=== PATIENT | male | born 1950 | race Caucasian/White ===

== ENCOUNTER → 2016-09-28 | Outpatient (CLI) | payer OTHER ==
[~2016-09-28] MED LIST: ASPI-113 PO; ATEN25TA PO; OMEGCAP2 PO
[2016-09-28 13:16] LABS: BASO % 0.3 %; BASO ABS # 0.03 K/uL (0-0.2); COMPLETE YES; EOS % 5.8 %; HEMATOCRIT 47.9 % (42-52); IG% 0.3 %; LYMPH % 25.5 %; LYMPH ABS # 2.36 K/uL (1.2-3.4); MEAN CELL VOLUME 95.8 fL (80-100); MEAN CORPUSCULAR HEMOGLOBIN 33.4 pg (25-34); MEAN CORPUSCULAR HGB CONC 34.9 g/dl (32-36); MONO % 7.6 %; NEUT % 60.5 %; PLATELET COUNT 253 K/uL (130-400); WHITE BLOOD COUNT 9.26 K/uL (4.8-10.8)
[2016-09-28 13:34] LABS: ALT/SGPT 31 U/L (12-78); BLOOD UREA NITROGEN 17 mg/dl (7-18); BUN/CREATININE RATIO 19.8 (10-20); CARBON DIOXIDE 22 mmol/L (21-32); CHLORIDE 107 mmol/L (98-107); CHOLESTEROL 180 mg/dl (0-200); CREATININE 0.88 mg/dl (0.60-1.40); GLUCOSE 142 mg/dl (70-99); POTASSIUM 4.1 mmol/L (3.5-5.1); SODIUM 140 mmol/L (136-145); TRIGLYCERIDES 208 mg/dl (0-150); VERY LOW DENSITY LIPOPROT CALC 42 mg/dl
[2016-09-28 13:36] LABS: ESTIMATED AVERAGE GLUCOSE 108 mg/dl; HA1C FLAG Normal (Normal)
[2016-09-28 13:50] LABS: ALB/GLOB RATIO 0.8 (0.9-2); ALKALINE PHOSPHATASE 96 U/L (45-117); AST/SGOT 18 U/L (15-37); CHOLESTEROL/HDL RATIO 4.1; HDL CHOLESTEROL 44 mg/dl; PROSTATE SPECIFIC ANTIGEN 0.638 ng/ml (0.000-4.000)
--- NOTE | 2016-10-05 09:02 | CODING QUERY MEDICAL NECESSITY ---
CQSUPPORTING DIAGNOSIS NEEDED A supporting diagnosis is required for the test/procedure performed on this patient in order for us to be reimbursed by the patient's insurance. Please provide a supporting diagnosis for the following test/procedure listed below next to the test name along with your signature. *If there is no additional diagnosis for this patient that would support the following test/procedure please document that below next to the test/procedure. Test(s)/Procedure(s) that require a supporting diagnosis: DOS 09/28/16 PROSTATE SPECIFIC TEST Provider Signature: Date: Thank you Elvie Eagle [employer] Once completed, please kindly fax back to [phone] For questions please call [phone]
== END | disposition home or self-care (01) ==
LOC: C.LABSPEC 12:23
PROVIDERS: ATTEND Internal Medicine
DX: R73.9 Hyperglycemia, unspecified (principal); I10 Essential (primary) hypertension; E78.5 Hyperlipidemia, unspecified; R30.0 Dysuria; N52.9 Male erectile dysfunction, unspecified; R35.0 Frequency of micturition

== ENCOUNTER 2017-09-16 11:54 | Inpatient (IN) | payer OTHER ==
[~2017-09-16] VITALS: Ht 175.3 cm; Wt 94.0 kg
[2017-09-16] MEDS ORDERED: SODIUM CHLORIDE 0.9% 1000ML 1,000 ML IV SCH (12:57)
[2017-09-16 13:11] LABS: BASO % 0.3 %; BASO ABS # 0.03 K/uL (0-0.2); EOS % 6.4 %; EOS ABS # 0.64 K/uL (0-0.5); HEMATOCRIT 48.2 % (42-52); HEMOGLOBIN 17.5 g/dL (14.0-18.0); IG# 0.03 K/uL (0.00-0.02); LYMPH % 25.3 %; LYMPH ABS # 2.52 K/uL (1.2-3.4); MEAN CELL VOLUME 94.3 fL (80-100); MEAN CORPUSCULAR HEMOGLOBIN 34.2 pg (25-34); MEAN CORPUSCULAR HGB CONC 36.3 g/dl (32-36); MEAN PLATELET VOLUME 9.8 fL (7.4-10.4); MONO % 5.2 %; MONO ABS # 0.52 K/uL (0.11-0.59); NEUT % 62.5 %; NEUT ABS # 6.23 K/uL (1.4-6.5); PLATELET COUNT 251 K/uL (130-400); RED CELL DISTRIBUTION WIDTH CV 12.9 % (11.5-14.5); RED CELL DISTRIBUTION WIDTH SD 44.6 fL (36.4-46.3); WHITE BLOOD COUNT 9.97 K/uL (4.8-10.8)
[2017-09-16 13:21] LABS: PTT PATIENT 25.6 SECONDS (21.0-31.0)
--- NOTE | 2017-09-16 13:26 | DIAGNOSTIC IMAGING REPORT ---
HEAD WITHOUT CONTRAST (CT) CT DOSE: 614.27 mGy.cm HISTORY: Mental status change Stroke TECHNIQUE: Multiaxial CT images of the head were performed without the use of intravenous contrast. A dose lowering technique was utilized adhering to the principles of ALARA. Comparison: None. Findings: Mild mucosal thickening of the ethmoid sinuses The calvarium and skull base are intact. The ventricles and sulci are within normal limits. There is no mass, hematoma, midline shift, or acute infarct. Age-related chronic small vessel change. No acute intracranial hemorrhage. Impression: No acute intracranial abnormality. Age-related change. The above report was generated using voice recognition software. It may contain grammatical, syntax or spelling errors. Electronically signed by: Drew Chawla M.D. 09/16/2017 1:25 PM Dictated Date/Time: 09/16/2017 1:23 PM
[2017-09-16 13:27] LABS: BLOOD UREA NITROGEN 16 mg/dl (7-18); CALCIUM 8.7 mg/dl (8.5-10.1); CARBON DIOXIDE 26 mmol/L (21-32); CREATININE 1.03 mg/dl (0.60-1.40); GLUCOSE 126 mg/dl (70-99); SODIUM 138 mmol/L (136-145)
--- NOTE | 2017-09-16 13:32 | DIAGNOSTIC IMAGING REPORT ---
CHEST ONE VIEW PORTABLE CLINICAL HISTORY: Stroke COMPARISON STUDY: No previous studies for comparison. FINDINGS: The heart is at the upper limits of normal in size. There is no failure. There is no focal pulmonary consolidation. There are left midlung zone and lower lung zone atelectatic changes. No significant pleural effusions are visualized IMPRESSION: No active disease in the chest. Electronically signed by: Kobe Vargas M.D. 09/16/2017 1:30 PM Dictated Date/Time: 09/16/2017 1:30 PM
[2017-09-16] MEDS ORDERED: METH10TA4 PO (14:26)
[2017-09-16] MEDS ORDERED: ONDANSETRON INJ 2 MG/ML 2 ML VIAL IV PRN (15:00)
[2017-09-16] MEDS ORDERED: ALUMINUM/MAGNESIUM/SIMETH (MAALOX MAX) 30 ML UDC PO PRN (15:00)
[2017-09-16] MEDS ORDERED: MAGNESIUM HYDROXIDE SUSP 30 ML UDC PO PRN (15:00)
[2017-09-16] MEDS ORDERED: ACETAMINOPHEN 325 MG TAB PO PRN (15:00)
[2017-09-16] MEDS ORDERED: PHARMACIST DISCHARGE MED REC CONSULT PRN (15:00)
[2017-09-16] MEDS ORDERED: POLYETHYLENE (MIRALAX) 17 GM PACK PO PRN (15:00)
[2017-09-16] MEDS ORDERED: HydrALAZINE HCL 20 MG/ML VIAL IV. PRN (15:15)
--- NOTE | 2017-09-16 15:17 | History and Physical ---
History & Physical Date & Time of Service: Sep 16, 2017 at 14:59 Chief Complaint: Numbness Left Leg And Arm Primary Care Physician: Jus Liu M.D. History of Present Illness Source: patient, spouse Mr. Wilson is a 67 y/o male with PMHx of HTN and ADHD who presents to the ED c/o L sided numbness/tingling and ambulatory dysfunction starting on 09/15 around 0800. Patient reports that he woke up with these symptoms yesterday. Reporting L arm numbness/tingling that extends the whole length of the arm but does report this is beginning to resolve. He also had associated weakness of the L leg only. He states the leg seems to buckle when he tries to bear weight. He figured these symptoms would resolve and that is why he didn't seek initial care. He feels that the weakness in his leg is improving at this time but not at his baseline ambulatory status. He reports not needing any assistive devices for ambulation at baseline. He denies headache, speech difficulty, swallowing disturbances, vision changes, or facial droop. He denies history of similar issues. Past Medical/Surgical History Medical Problems: (1) Ataxia (2) Hypertension (3) ADHD Family History Stroke Social History Smoking Status: Current Some Day Smoker Alcohol Use: socially Drug Use: none Marital Status: Housing status: lives with significant other Allergies Uncoded Allergies: BEE STINGS (Allergy, Unknown, ., 04/11/15) Home Medications Scheduled Atenolol (Tenormin), 25 MG PO QPM Methylphenidate (Ritalin), 10 MG PO QID Review of Systems Constitutional: No fever, No chills Eyes: No worsening of vision, No diplopia ENT: No nasal symptoms Respiratory: No cough, No shortness of breath Cardiovascular: No chest pain Abdomen: No pain, No nausea, No vomiting, No diarrhea, No constipation Musculoskeletal: No swelling, No calf pain Genitourinary - Male: No dysuria Neurologic: + weakness (LLE - bucking leg when weightbearing), + numbness/ tingling (L arm - full length of arm), + balance problems Hematologic / Lymphatic: No abnormal bleeding/bruising Integumentary: No rash Physical Exam Vital Signs Date Time Temp Pulse Resp B/P (MAP) Pulse Ox O2 Delivery O2 Flow Rate FiO2 09/16/17 14:15 50 18 184/96 96 Room Air 09/16/17 13:00 51 16 178/98 97 Room Air 09/16/17 12:43 53 16 191/102 98 Room Air 09/16/17 12:27 52 09/16/17 12:20 Room Air 09/16/17 12:04 36.5 52 16 191/103 95 Room Air General Appearance: WD/WN, no apparent distress Head: normocephalic, atraumatic Eyes: sclerae normal ENT: hearing grossly normal Neck: supple, no JVD, trachea midline Respiratory/Chest: lungs clear, normal breath sounds, no respiratory distress, no accessory muscle use Cardiovascular: regular rate, rhythm, no gallop, no murmur Abdomen/GI: normal bowel sounds, non tender, soft Extremities/Musculoskelatal: no calf tenderness, no pedal edema Neurologic/Psych: no motor/sensory deficits (equal strength diffusely b/l; symmetrical facial features and movements; Romberg negative; WARNER intact), alert , normal mood/affect, oriented x 3 Skin: normal color, warm/dry Diagnostics Laboratory Results Results Past 24 Hours Test 09/16/17 12:30 Range/Units White Blood Count 9.97 4.8-10.8 K/uL Red Blood Count 5.11 4.7-6.1 M/uL Hemoglobin 17.5 14.0-18.0 g/dL Hematocrit 48.2 42-52 % Mean Corpuscular Volume 94.3 80-100 fL Mean Corpuscular Hemoglobin 34.2 25-34 pg Mean Corpuscular Hemoglobin Concent 36.3 32-36 g/dl Platelet Count 251 130-400 K/uL Mean Platelet Volume 9.8 7.4-10.4 fL Neutrophils (%) (Auto) 62.5 % Lymphocytes (%) (Auto) 25.3 % Monocytes (%) (Auto) 5.2 % Eosinophils (%) (Auto) 6.4 % Basophils (%) (Auto) 0.3 % Neutrophils # (Auto) 6.23 1.4-6.5 K/uL Lymphocytes # (Auto) 2.52 1.2-3.4 K/uL Monocytes # (Auto) 0.52 0.11-0.59 K/uL Eosinophils # (Auto) 0.64 0-0.5 K/uL Basophils # (Auto) 0.03 0-0.2 K/uL RDW Standard Deviation 44.6 36.4-46.3 fL RDW Coefficient of Variation 12.9 11.5-14.5 % Immature Granulocyte % (Auto) 0.3 % Immature Granulocyte # (Auto) 0.03 0.00-0.02 K/uL Prothrombin Time 10.5 9.0-12.0 SECONDS Prothromb Time International Ratio 1.0 0.9-1.1 Activated Partial Thromboplast Time 25.6 21.0-31.0 SECONDS Partial Thromboplastin Ratio 1.0 Sodium Level 138 136-145 mmol/L Potassium Level 4.0 3.5-5.1 mmol/L Chloride Level 105 98-107 mmol/L Carbon Dioxide Level 26 21-32 mmol/L Anion Gap 7.0 3-11 mmol/L Blood Urea Nitrogen 16 7-18 mg/dl Creatinine 1.03 0.60-1.40 mg/dl Est Creatinine Clear Calc Drug Dose 78.8 ml/min Estimated GFR () 86.7 Estimated GFR (Non- 74.8 BUN/Creatinine Ratio 15.1 10-20 Random Glucose 126 70-99 mg/dl Calcium Level 8.7 8.5-10.1 mg/dl Magnesium Level 2.4 1.8-2.4 mg/dl Total Creatine Kinase 43 39-308 U/L Troponin I < 0.015 0-0.045 ng/ml Diagnostic Radiology HEAD WITHOUT CONTRAST (CT) Findings: Mild mucosal thickening of the ethmoid sinuses The calvarium and skull base are intact. The ventricles and sulci are within normal limits. There is no mass, hematoma, midline shift, or acute infarct. Age-related chronic small vessel change. No acute intracranial hemorrhage. Impression: No acute intracranial abnormality. Age-related change. CHEST ONE VIEW PORTABLE FINDINGS: The heart is at the upper limits of normal in size. There is no failure. There is no focal pulmonary consolidation. There are left midlung zone and lower lung zone atelectatic changes. No significant pleural effusions are visualized IMPRESSION: No active disease in the chest. EKG Sinus bradycardia Inferior infarct , age undetermined Abnormal ECG No previous ECGs available Impression Assessment and Plan Mr. Wilson is a 67 y/o male with PMHx of HTN and ADHD who presents to the ED c/o L sided numbness/tingling and ambulatory dysfunction starting on 09/15 around 0800. Ataxis and L Arm Numbness - Suspect Stroke: - Head CT unremarkable and symptoms slowly resolving however has been > 24 hours without complete resolution that is alarming for CVA - Patient has H/O HTN but reporting baseline systolics of 140 and currently 180- 190s which may also be an indicator - Obtain MRI to R/O CVA - Start ASA 81 mg - reports intermittent use at home - Start Atorvastatin 40 mg daily and assess lipid panel in AM; Check A1c - Allow permissive HTN with Hydralazine PRN for systolics > 220 or diastolics > 120 - Monitor rhythm on telemetry and obtain echocardiogram ADHD: - Ritalin 10 mg BID - Could possibly be factoring into his BP? HTN: - Hold Atenolol and allowe permissive HTN DVT Prophylaxis: Lovenox Code Status: FULL RESUSCITATION Disposition: - PT/OT evaluations - Await further testing; possible D/C tomorrow Resident Physician Supervision Note: I was present with Renetta BAÑUELOS during the history and exam. I discussed the case with the PA and agree with the findings and plan as documented in the note. Any exceptions or clarifications are listed here: 67 y/o M Hx HTN, ADHD - presenting with LUE numbness and ataxia which has persisted since the prior day. An initial CT was negative, however, an MRI revealed an acute lacunar infarct in the posterior limb of the right internal capsule. OE AAO x 3 S1,2 R CTAB NT, ND No CCE Deficits mostly limited to an impaired gait P: Pt does not take ASA regularly so that he is placed on ASA and a Statin. He may want to avoid Ritalin going forward as this may cause BP spikes. We have consulted neurology. He is assigned to telemetry overnight with a CVA protocol. Documented By: Jay Marsh Resuscitation Status VTE Prophylaxis Will order VTE Prophylaxis: Yes
[2017-09-16] MEDS ORDERED: IV FLUIDS COMPLETED PRN (15:30)
--- NOTE | 2017-09-16 15:55 | DIAGNOSTIC IMAGING REPORT ---
ORBITS FOR MRI CLINICAL HISTORY: 67 years-old Male presenting with HX OF METAL IN EYES. TECHNIQUE: 3 views of the orbits were obtained. COMPARISON: None. FINDINGS: No radiopaque intraorbital foreign body. Bony orbits grossly intact. Paranasal sinuses grossly clear. Visualized portion of the calvarium intact. IMPRESSION: No intraorbital metallic foreign body to preclude MRI exam. Electronically signed by: Jerzy Casillas M.D. 09/16/2017 3:54 PM Dictated Date/Time: 09/16/2017 3:54 PM
--- NOTE | 2017-09-16 17:05 | DIAGNOSTIC IMAGING REPORT ---
BRAIN COMBO CLINICAL HISTORY: 67 years-old Male presenting with Stroke, numbness in the left arm and leg that began yesterday. TECHNIQUE: Multisequence, multiplanar MR imaging of the brain was performed before and after the administration of intravenous contrast. IV contrast: 9 mL of Gadavist. COMPARISON: Noncontrast CT head performed earlier the same day. FINDINGS: Proportional ventricular and sulcal prominence, likely age-related parenchymal volume loss. Periventricular and subcortical white matter T2/FLAIR hyperintensity, nonspecific but likely indicative of chronic small vessel ischemic change. No mass effect or midline shift. Punctate restricted diffusion in the posterior limb of the right internal capsule or the posterior lateral most right thalamus. No hemorrhage. No extra-axial fluid collection. T2 skull base flow voids preserved. No abnormal parenchymal enhancement. Bone marrow signal intensity within the calvarium within normal limits. Mucosal thickening of ethmoid air cells. IMPRESSION: 1. Acute lacunar infarct in the posterior limb of the right internal capsule or the posterior lateral most right thalamus. 2. Chronic small vessel ischemic change. The report will be called/faxed according to standard departmental protocol. Electronically signed by: Jerzy Casillas M.D. 09/16/2017 5:03 PM Dictated Date/Time: 09/16/2017 4:57 PM
[2017-09-16 17:18] VITALS: BP 186/82; PULSE 53; TEMP 36.4; O2SAT 94
[2017-09-16] MEDS ORDERED: ENOXAPARIN 30 MG/0.3 ML SYR SC SCH (18:00)
[2017-09-16 18:45] VITALS: BP 186/82; PULSE 53; TEMP 36.4; O2SAT 98; Ht 175.3 cm; Wt 94.0 kg
--- NOTE | 2017-09-16 19:13 | EMERGENCY ROOM VISIT NOTE ---
History Report prepared by Rachell: Alvina Laguerre Under the Supervision of: Dr. Jonnie Ramírez M.D. First contact with patient: 12:46 Chief Complaint: NEURO SYMPTOMS Stated Complaint: NUMBNESS LEFT LEG AND ARM Nursing Triage Summary: pt here with left sided tingling and numbess and trouble ambulating and using left arm that began yesterday upon waking up. pt denies any n/v, or headache. denies any trouble swallowing, no trouble speaking or visual disturbances. History of Present Illness The patient is a 67 year old male who presents to the Emergency Room with complaints of sudden neurological symptoms beginning yesterday morning around 0800. The patient states that his left leg was weak and that he had numbness in his left arm. He reports that he was unable to stand on his left leg due to the weakness. He felt the leg was very shaky and uncoordinated. The patient denies having any right-sided symptoms. He states that he did not come in yesterday because he thought that his symptoms would pass. He denies having facial numbness, visual changes, and trouble speaking. The patient also denies having chest pain, shortness of breath, abdominal pain, and headaches. He denies having a history of strokes, but reports that he takes Atenolol for hypertension. Source of History: patient Onset: 0800 yesterday morning Position: other (left-side of body) Quality: other (neurological symptoms ) Timing: other (sudden ) Associated Symptoms: No headache, No chest pain, No SOB, No abdominal pain Note: denies: facial numbness, visual changes, and trouble speaking Review of Systems See HPI for pertinent positives & negatives. A total of 10 systems reviewed and were otherwise negative. Past Medical & Surgical Medical Problems: (1) Acute lacunar infarction (2) Ataxia (3) Hypertension Family History Stroke Social History Smoking Status: Current Some Day Smoker Marital Status: Current/Historical Medications Scheduled Atenolol (Tenormin), 25 MG PO QPM Methylphenidate (Ritalin), 10 MG PO QID Allergies Uncoded Allergies: BEE STINGS (Allergy, Unknown, ., 04/11/15) Physical Exam Vital Signs Date Time Temp Pulse Resp B/P (MAP) Pulse Ox O2 Delivery O2 Flow Rate FiO2 09/16/17 14:15 50 18 184/96 96 Room Air 09/16/17 13:00 51 16 178/98 97 Room Air 09/16/17 12:43 53 16 191/102 98 Room Air 09/16/17 12:27 52 09/16/17 12:20 Room Air 09/16/17 12:04 36.5 52 16 191/103 95 Room Air Physical Exam Constitutional: Vital signs reviewed. Eyes: Pupils are equal round reactive to light. Conjunctiva are noninjected. ENT: Pharynx is clear without erythema or exudate. Mucous membranes are moist. Neck supple without meningeal signs. Respiratory: Clear to auscultation bilaterally. Breath sounds are equal bilaterally. Cardiovascular: Regular rate and rhythm. No rubs or gallops. GI: Soft, nondistended and nontender. Bowel sounds are present. Musculoskeletal: No peripheral edema. No lower extremity tenderness. Integumentary: No cyanosis. Neurological: The patient is awake and alert. Cranial nerves II-XII are intact. Motor is 5 out of 5 all extremities. Diminished sensation in the left arm and leg. Normal speech. No pronator drift. Left lower extremity ataxia. Psychiatric: Normal affect. Medical Decision & Procedures ER Provider Diagnostic Interpretation: Radiology results as stated below per my review and the radiologist's interpretation: HEAD WITHOUT CONTRAST (CT) CT DOSE: 614.27 mGy.cm HISTORY: Mental status change Stroke TECHNIQUE: Multiaxial CT images of the head were performed without the use of intravenous contrast. A dose lowering technique was utilized adhering to the principles of ALARA. Comparison: None. Findings: Mild mucosal thickening of the ethmoid sinuses The calvarium and skull base are intact. The ventricles and sulci are within normal limits. There is no mass, hematoma, midline shift, or acute infarct. Age-related chronic small vessel change. No acute intracranial hemorrhage. Impression: No acute intracranial abnormality. Age-related change. The above report was generated using voice recognition software. It may contain grammatical, syntax or spelling errors. Electronically signed by: Drew Chawla M.D. 09/16/2017 1:25 PM Dictated Date/Time: 09/16/2017 1:23 PM CHEST ONE VIEW PORTABLE CLINICAL HISTORY: Stroke COMPARISON STUDY: No previous studies for comparison. FINDINGS: The heart is at the upper limits of normal in size. There is no failure. There is no focal pulmonary consolidation. There are left midlung zone and lower lung zone atelectatic changes. No significant pleural effusions are visualized IMPRESSION: No active disease in the chest. Electronically signed by: Kobe Vargas M.D. 09/16/2017 1:30 PM Dictated Date/Time: 09/16/2017 1:30 PM Laboratory Results 09/16/17 12:30 Red Blood Count 5.11, Mean Corpuscular Volume 94.3, Mean Corpuscular Hemoglobin 34.2, Mean Corpuscular Hemoglobin Concent 36.3, Mean Platelet Volume 9.8, Neutrophils (%) (Auto) 62.5, Lymphocytes (%) (Auto) 25.3, Monocytes (%) (Auto) 5.2, Eosinophils (%) (Auto) 6.4, Basophils (%) (Auto) 0.3, Neutrophils # (Auto) 6.23, Lymphocytes # (Auto) 2.52, Monocytes # (Auto) 0.52, Eosinophils # (Auto) 0.64, Basophils # (Auto) 0.03 09/16/17 12:30 Test 09/16/17 12:30 White Blood Count 9.97 K/uL (4.8-10.8) Red Blood Count 5.11 M/uL (4.7-6.1) Hemoglobin 17.5 g/dL (14.0-18.0) Hematocrit 48.2 % (42-52) Mean Corpuscular Volume 94.3 fL (80-100) Mean Corpuscular Hemoglobin 34.2 pg (25-34) Mean Corpuscular Hemoglobin Concent 36.3 g/dl (32-36) Platelet Count 251 K/uL (130-400) Mean Platelet Volume 9.8 fL (7.4-10.4) Neutrophils (%) (Auto) 62.5 % Lymphocytes (%) (Auto) 25.3 % Monocytes (%) (Auto) 5.2 % Eosinophils (%) (Auto) 6.4 % Basophils (%) (Auto) 0.3 % Neutrophils # (Auto) 6.23 K/uL (1.4-6.5) Lymphocytes # (Auto) 2.52 K/uL (1.2-3.4) Monocytes # (Auto) 0.52 K/uL (0.11-0.59) Eosinophils # (Auto) 0.64 K/uL (0-0.5) Basophils # (Auto) 0.03 K/uL (0-0.2) RDW Standard Deviation 44.6 fL (36.4-46.3) RDW Coefficient of Variation 12.9 % (11.5-14.5) Immature Granulocyte % (Auto) 0.3 % Immature Granulocyte # (Auto) 0.03 K/uL (0.00-0.02) Prothrombin Time 10.5 SECONDS (9.0-12.0) Prothromb Time International Ratio 1.0 (0.9-1.1) Activated Partial Thromboplast Time 25.6 SECONDS (21.0-31.0) Partial Thromboplastin Ratio 1.0 Anion Gap 7.0 mmol/L (3-11) Est Creatinine Clear Calc Drug Dose 78.8 ml/min Estimated GFR () 86.7 Estimated GFR (Non- 74.8 BUN/Creatinine Ratio 15.1 (10-20) Calcium Level 8.7 mg/dl (8.5-10.1) Magnesium Level 2.4 mg/dl (1.8-2.4) Total Creatine Kinase 43 U/L (39-308) Troponin I < 0.015 ng/ml (0-0.045) Laboratory results as reviewed by me. Medications Administered Medications (Trade) Dose Ordered Sig/Bertha Route Start Time Stop Time Status Last Admin Dose Admin Sodium Chloride 1,000 ml @ 50 mls/hr Q20H IV 09/16/17 12:57 09/16/17 16:49 DC 09/16/17 13:17 50 MLS/HR ECG Per My Interpretation Indication: other (neurological symptoms ) Rate (beats per minute): 51 Rhythm: sinus bradycardia Findings: other (no ST elevation, no PVCs) ED Course 1247: The patient was evaluated in room B4. A complete history and physical exam was performed. 1257: Ordered Sodium Chloride 1,000 ml @ 50 mls/hr IV. 1428: I checked on the patient. He says that his numbness has improved but that his ataxia is still present. 1430: I spoke with Dr. Marsh of [facility]. We discussed the patient and his results. The patient will be further evaluated by Dr. Marsh. Medical Decision This is a 67-year-old male who presents with limb ataxia and numbness. Differential diagnosis includes CVA, intracranial mass, intracranial hemorrhage , metabolic derangement, demyelinating disease. I did perform a limited focused review of portions of the patient's old chart on the electronic medical record. The patient has had no recent pertinent visits to this hospital. I did evaluate the patient as noted above. Patient does have diminished sensation in the left arm and leg. He also has limb ataxia with the left limb. IV access was established. The patient was placed on a continuous cardiac/vascular sonographer. I did order and personally review the patient's 12-lead EKG and chest x-ray as described above. I did order and review the patient's blood work as noted in the electronic medical record. I did order a CT of the head. I did review the images myself as well as the radiology report as described above. There is no evidence of acute CVA. I was, however, concerned about thalamic CVA and recommended he be hospitalized for further evaluation and MRI. I did discuss case with the hospitalist and foster care case manager. I did discuss the test results with the patient and his . Medication Reconcilliation Current Medication List: was personally reviewed by me Blood Pressure Screening Patient's blood pressure: Elevated blood pressure Blood pressure disposition: Referred to PCP Consults Time Called: 1430 Consulting Physician: Dr. Marsh- [facility] Returned Call: [address] Marsh of [facility]. We discussed the patient and his results. The patient will be further evaluated by Dr. Marsh. Impression Primary Impression: Left sided numbness Additional Impression: Limb ataxia in one extremity Scribe Attestation The scribe's documentation has been prepared under my direct and personally reviewed by me in its entirety. I confirm that the note above accurately reflects all work, treatment, procedures, and medical decision making performed by me. Departure Information Dispostion Being Evaluated By Hospitalist Referrals Jus Liu M.D. (PCP) Patient Instructions My [facility] Problem Qualifiers
[2017-09-16 20:00] VITALS: O2SAT 98
[2017-09-16 20:39] VITALS: BP 178/105; TEMP 36.6; O2SAT 96
[2017-09-17] VITALS (7 sets, daily range): BP systolic 149–180; BP diastolic 88–102; PULSE 54–58; TEMP 36.5–37.1; O2SAT 93–95
[2017-09-17 06:03] LABS: BASO % 0.1 %; BASO ABS # 0.01 K/uL (0-0.2); EOS % 5.2 %; EOS ABS # 0.51 K/uL (0-0.5); HEMATOCRIT 45.5 % (42-52); HEMOGLOBIN 16.1 g/dL (14.0-18.0); IG# 0.04 K/uL (0.00-0.02); LYMPH % 32.4 %; LYMPH ABS # 3.16 K/uL (1.2-3.4); MEAN CELL VOLUME 93.8 fL (80-100); MEAN CORPUSCULAR HEMOGLOBIN 33.2 pg (25-34); MEAN CORPUSCULAR HGB CONC 35.4 g/dl (32-36); MEAN PLATELET VOLUME 9.1 fL (7.4-10.4); MONO ABS # 0.78 K/uL (0.11-0.59); NEUT % 53.9 %; NEUT ABS # 5.26 K/uL (1.4-6.5); PLATELET COUNT 245 K/uL (130-400); RED CELL DISTRIBUTION WIDTH CV 12.8 % (11.5-14.5); RED CELL DISTRIBUTION WIDTH SD 43.8 fL (36.4-46.3); WHITE BLOOD COUNT 9.76 K/uL (4.8-10.8)
[2017-09-17 06:30] LABS: CALCIUM 8.2 mg/dl (8.5-10.1); CREATININE 1.11 mg/dl (0.60-1.40); POTASSIUM 3.6 mmol/L (3.5-5.1)
[2017-09-17 06:41] LABS: HEMOGLOBIN A1C 5.3 % (4.5-5.6)
[2017-09-17] MEDS ORDERED: METHYLPHENIDATE HCL 10 MG TAB PO SCH (07:00)
--- NOTE | 2017-09-17 08:44 | Progress Note ---
Subjective Date of Service: Sep 17, 2017. Problem List Medical Problems: (1) Left sided numbness Status: Acute (2) Limb ataxia in one extremity Status: Acute Objective Vital Signs Date Time Temp Pulse Resp B/P (MAP) Pulse Ox O2 Delivery O2 Flow Rate FiO2 09/17/17 07:38 36.5 57 16 149/88 (108) 94 Room Air 09/17/17 04:00 94 Room Air 09/17/17 03:41 37.1 54 16 172/96 (121) 94 09/17/17 00:02 36.9 58 18 180/102 (128) 93 174/102 (126) 09/17/17 00:01 93 Room Air 09/16/17 20:39 36.6 53 178/105 (129) 96 Room Air 09/16/17 20:00 98 Room Air 09/16/17 18:45 36.4 53 18 186/82 98 Room Air 09/16/17 17:18 36.4 53 18 186/82 (116) 94 Room Air 09/16/17 16:19 36.5 52 18 173/102 96 09/16/17 15:13 52 18 173/102 96 Room Air 09/16/17 14:15 50 18 184/96 96 Room Air 09/16/17 13:00 51 16 178/98 97 Room Air 09/16/17 12:43 53 16 191/102 98 Room Air 09/16/17 12:27 52 09/16/17 12:20 Room Air 09/16/17 12:04 36.5 52 16 191/103 95 Room Air Laboratory Results Last 24 Hours Test 09/16/17 12:30 09/17/17 05:44 White Blood Count 9.97 K/uL 9.76 K/uL Red Blood Count 5.11 M/uL 4.85 M/uL Hemoglobin 17.5 g/dL 16.1 g/dL Hematocrit 48.2 % 45.5 % Mean Corpuscular Volume 94.3 fL 93.8 fL Mean Corpuscular Hemoglobin 34.2 pg 33.2 pg Mean Corpuscular Hemoglobin Concent 36.3 g/dl 35.4 g/dl Platelet Count 251 K/uL 245 K/uL Mean Platelet Volume 9.8 fL 9.1 fL Neutrophils (%) (Auto) 62.5 % 53.9 % Lymphocytes (%) (Auto) 25.3 % 32.4 % Monocytes (%) (Auto) 5.2 % 8.0 % Eosinophils (%) (Auto) 6.4 % 5.2 % Basophils (%) (Auto) 0.3 % 0.1 % Neutrophils # (Auto) 6.23 K/uL 5.26 K/uL Lymphocytes # (Auto) 2.52 K/uL 3.16 K/uL Monocytes # (Auto) 0.52 K/uL 0.78 K/uL Eosinophils # (Auto) 0.64 K/uL 0.51 K/uL Basophils # (Auto) 0.03 K/uL 0.01 K/uL RDW Standard Deviation 44.6 fL 43.8 fL RDW Coefficient of Variation 12.9 % 12.8 % Immature Granulocyte % (Auto) 0.3 % 0.4 % Immature Granulocyte # (Auto) 0.03 K/uL 0.04 K/uL Prothrombin Time 10.5 SECONDS Prothromb Time International Ratio 1.0 Activated Partial Thromboplast Time 25.6 SECONDS Partial Thromboplastin Ratio 1.0 Sodium Level 138 mmol/L 138 mmol/L Potassium Level 4.0 mmol/L 3.6 mmol/L Chloride Level 105 mmol/L 104 mmol/L Carbon Dioxide Level 26 mmol/L 28 mmol/L Anion Gap 7.0 mmol/L 6.0 mmol/L Blood Urea Nitrogen 16 mg/dl 17 mg/dl Creatinine 1.03 mg/dl 1.11 mg/dl Est Creatinine Clear Calc Drug Dose 78.8 ml/min 73.1 ml/min Estimated GFR () 86.7 79.2 Estimated GFR (Non- 74.8 68.3 BUN/Creatinine Ratio 15.1 15.7 Random Glucose 126 mg/dl 123 mg/dl Calcium Level 8.7 mg/dl 8.2 mg/dl Magnesium Level 2.4 mg/dl Total Creatine Kinase 43 U/L Troponin I < 0.015 ng/ml Estimated Average Glucose 105 mg/dl Hemoglobin A1c 5.3 % Triglycerides Level 289 mg/dl Cholesterol Level 171 mg/dl HDL Cholesterol 36 mg/dl LDL Cholesterol, Calculated 77 mg/dl VLDL Cholesterol, Calculated 58 mg/dl Cholesterol/HDL Ratio 4.8 Assessment and Plan Mr. Wilson is a 67 y/o male with PMHx of HTN and ADHD who presents to the ED c/o L sided numbness/tingling and ambulatory dysfunction starting on 09/15 around 0800. Ataxis and L Arm Numbness - Suspect Stroke: - Head CT unremarkable and symptoms slowly resolving however has been > 24 hours without complete resolution that is alarming for CVA - Patient has H/O HTN but reporting baseline systolics of 140 and currently 180- 190s which may also be an indicator - Obtain MRI to R/O CVA - Start ASA 81 mg - reports intermittent use at home - Start Atorvastatin 40 mg daily and assess lipid panel in AM; Check A1c - Allow permissive HTN with Hydralazine PRN for systolics > 220 or diastolics > 120 - Monitor rhythm on telemetry and obtain echocardiogram ADHD: - Ritalin 10 mg BID - Could possibly be factoring into his BP? HTN: - Hold Atenolol and allowe permissive HTN DVT Prophylaxis: Lovenox Code Status: FULL RESUSCITATION Disposition: - PT/OT evaluations - Await further testing; possible D/C tomorrow
[2017-09-17] MEDS ORDERED: ATORVASTATIN 40 MG TAB PO SCH (09:00)
[2017-09-17] MEDS ORDERED: ASPIRIN 81 MG ECTAB PO SCH (09:00)
--- NOTE | 2017-09-17 09:44 | Neurology Consultation ---
Neurology Consultation Date of Consultation: Sep 17, 2017. Attending Physician: Jay Marsh M.D. Primary Care Physician: Jus Liu M.D. Reason for Consultation: Stroke History of Present Illness Source: patient, hospital records The patient is a 67-year-old male with a chief complaint left-sided weakness. His symptoms began upon awakening in the morning the day prior to his evaluation in the emergency department. He complained that his left leg felt considerably weak and he had difficulty bearing weight and walking. He complained of associated numbness of the leg and left hand as well. This morning, he reports that his symptoms are considerably improved although he continues to be aware of subtle difficulty with coordination of the left arm and leg. He denies headache, vision change, or change in speech. Patient's past medical history is notable for hypertension for which she is prescribed atenolol and attention deficit disorder for which she is prescribed methylphenidate. He does not take aspirin or other blood thinners and does smoke approximately 4-5 cigarettes per day. I reviewed the images as well as the radiologist's interpretation of the CT of the head completed in the emergency department. The study reveals age-related small vessel ischemic disease and is otherwise unremarkable. Electrocardiogram reveals sinus bradycardia with a heart rate of 51 beats per minute. A follow-up brain MRI has been completed as well. I reviewed the images as well as a radiologist's interpretation of this test. There is evidence of an acute lacunar infarct within the posterior limb of the right internal capsule adjacent to the lateral thalamus. The patient has been started on daily aspirin and statin therapy. A transthoracic echocardiogram has been ordered. Past Medical/Surgical History Medical Problems: (1) Left sided numbness Status: Acute (2) Limb ataxia in one extremity Status: Acute Family History Family history notable for stroke Social History Alcohol Use: socially Drug Use: none Marital Status: Allergies Uncoded Allergies: BEE STINGS (Allergy, Unknown, ., 04/11/15) Current Inpatient Medications Current Inpatient Medications Medications (Trade) Dose Ordered Sig/Bertha Route Start Time Stop Time Status Last Admin Dose Admin Methylphenidate HCl (Ritalin Tab) 10 mg [id number] PO 09/17/17 07:00 10/01/17 06:59 Future Hold 09/17/17 08:15 10 MG Enoxaparin Sodium (Lovenox Inj) 30 mg Q24H SC 09/16/17 18:00 10/16/17 17:59 09/16/17 19:39 30 MG Acetaminophen (Tylenol Tab) 650 mg Q4H PRN PO 09/16/17 15:00 10/16/17 14:59 Al Hydrox/Mg Hydrox/Simethicone (Maalox Max Susp) 15 ml Q4H PRN PO 09/16/17 15:00 10/16/17 14:59 Magnesium Hydroxide (Milk Of Magnesia Susp) 30 ml Q12H PRN PO 09/16/17 15:00 10/16/17 14:59 Ondansetron HCl (Zofran Inj) 4 mg Q6H PRN IV 09/16/17 15:00 10/16/17 14:59 Polyethylene (Miralax Powder Packet) 17 gm DAILY PRN PO 09/16/17 15:00 10/16/17 14:59 Atorvastatin Calcium (Lipitor Tab) 40 mg QAM PO 09/17/17 09:00 10/17/17 08:59 09/17/17 08:16 40 MG Aspirin (Ecotrin Tab) 81 mg QAM PO 09/17/17 09:00 10/17/17 08:59 09/17/17 08:16 81 MG Miscellaneous Information (Pharmacist Discharge Med Rec Consult) 1 ea UD PRN N/A 09/16/17 15:00 10/16/17 14:59 Hydralazine HCl (HydrALAZINE INJ) 10 mg Q6 PRN IV. 09/16/17 15:15 10/16/17 15:14 Miscellaneous (Iv Fluids Completed) 1 ea PRN PRN N/A 09/16/17 15:30 09/16/18 15:29 Review of Systems Constitutional: No fever chills Eyes: No vision loss or diplopia ENT: No hearing loss or vertigo Cardiovascular: No chest pain or palpitations Respiratory: No coughing or shortness of breath Neurological: As per history of present illness Musculoskeletal: No myalgia or arthralgia Skin: No rash Hematologic: No abnormal bruising or bleeding A full 10 point review of systems was obtained from this patient with pertinent positives and negatives described in the history of present illness and otherwise listed above. All remaining systems were reviewed and are negative. Physical Exam Vital Signs (Past 24 Hrs): Date Time Temp Pulse Resp B/P (MAP) Pulse Ox O2 Delivery O2 Flow Rate FiO2 09/17/17 07:38 36.5 57 16 149/88 (108) 94 Room Air 09/17/17 04:00 94 Room Air 09/17/17 03:41 37.1 54 16 172/96 (121) 94 09/17/17 00:02 36.9 58 18 180/102 (128) 93 174/102 (126) 09/17/17 00:01 93 Room Air 09/16/17 20:39 36.6 53 178/105 (129) 96 Room Air 09/16/17 20:00 98 Room Air 09/16/17 18:45 36.4 53 18 186/82 98 Room Air 09/16/17 17:18 36.4 53 18 186/82 (116) 94 Room Air 09/16/17 16:19 36.5 52 18 173/102 96 09/16/17 15:13 52 18 173/102 96 Room Air 09/16/17 14:15 50 18 184/96 96 Room Air 09/16/17 13:00 51 16 178/98 97 Room Air 09/16/17 12:43 53 16 191/102 98 Room Air 09/16/17 12:27 52 09/16/17 12:20 Room Air 09/16/17 12:04 36.5 52 16 191/103 95 Room Air The patient is a well-developed elderly male. He is pleasant and cooperative. The patient is alert and fully oriented. Recent and remote memory intact. Attention and concentration normal. Patient exhibits a normal spontaneous speech pattern as well as an age-appropriate fund of knowledge a normal vocabulary. Visual balderas full to confrontation. Visual acuity normal. Pupils equal round react to light and accommodation. Eye movements normal. There is no nystagmus. Facial sensation intact bilaterally. There is no facial weakness or facial droop. Hearing intact bilaterally. Palate elevates to midline. Shoulder shrug strength intact bilaterally. Tongue protrudes to midline. Sensation intact to light touch, temperature, vibration, and proprioception for all 4 limbs. Deep tendon reflexes are slightly increased for the left arm and leg compared to the right. Left plantar response upgoing, right plantar response downgoing. There is slight dysmetria with finger to nose and heel to cheng on the left. No dysmetria with these maneuvers on the right. Ophthalmoscopic examination reveals normal-appearing optic nerves and posterior segments. No papilledema or hemorrhages. Carotid pulses normal bilaterally, no bruits to auscultation. Gait and station not tested due to safety concerns. Muscle strength and tone normal for all 4 limbs. There is no atrophy. He does have a slight left upper extremity pronator drift. No abnormal movements observed. Laboratory Results Past 24 Hours: 09/17/17 05:44 Red Blood Count 4.85, Mean Corpuscular Volume 93.8, Mean Corpuscular Hemoglobin 33.2, Mean Corpuscular Hemoglobin Concent 35.4, Mean Platelet Volume 9.1, Neutrophils (%) (Auto) 53.9, Lymphocytes (%) (Auto) 32.4, Monocytes (%) (Auto) 8.0, Eosinophils (%) (Auto) 5.2, Basophils (%) (Auto) 0.1, Neutrophils # (Auto) 5.26, Lymphocytes # (Auto) 3.16, Monocytes # (Auto) 0.78, Eosinophils # (Auto) 0.51, Basophils # (Auto) 0.01 09/17/17 05:44 Test 09/16/17 12:30 09/17/17 05:44 Prothrombin Time 10.5 SECONDS (9.0-12.0) Prothromb Time International Ratio 1.0 (0.9-1.1) Activated Partial Thromboplast Time 25.6 SECONDS (21.0-31.0) Partial Thromboplastin Ratio 1.0 Magnesium Level 2.4 mg/dl (1.8-2.4) Total Creatine Kinase 43 U/L (39-308) Troponin I < 0.015 ng/ml (0-0.045) White Blood Count 9.76 K/uL (4.8-10.8) Red Blood Count 4.85 M/uL (4.7-6.1) Hemoglobin 16.1 g/dL (14.0-18.0) Hematocrit 45.5 % (42-52) Mean Corpuscular Volume 93.8 fL (80-100) Mean Corpuscular Hemoglobin 33.2 pg (25-34) Mean Corpuscular Hemoglobin Concent 35.4 g/dl (32-36) Platelet Count 245 K/uL (130-400) Mean Platelet Volume 9.1 fL (7.4-10.4) Neutrophils (%) (Auto) 53.9 % Lymphocytes (%) (Auto) 32.4 % Monocytes (%) (Auto) 8.0 % Eosinophils (%) (Auto) 5.2 % Basophils (%) (Auto) 0.1 % Neutrophils # (Auto) 5.26 K/uL (1.4-6.5) Lymphocytes # (Auto) 3.16 K/uL (1.2-3.4) Monocytes # (Auto) 0.78 K/uL (0.11-0.59) Eosinophils # (Auto) 0.51 K/uL (0-0.5) Basophils # (Auto) 0.01 K/uL (0-0.2) RDW Standard Deviation 43.8 fL (36.4-46.3) RDW Coefficient of Variation 12.8 % (11.5-14.5) Immature Granulocyte % (Auto) 0.4 % Immature Granulocyte # (Auto) 0.04 K/uL (0.00-0.02) Anion Gap 6.0 mmol/L (3-11) Est Creatinine Clear Calc Drug Dose 73.1 ml/min Estimated GFR () 79.2 Estimated GFR (Non- 68.3 BUN/Creatinine Ratio 15.7 (10-20) Estimated Average Glucose 105 mg/dl Hemoglobin A1c 5.3 % (4.5-5.6) Calcium Level 8.2 mg/dl (8.5-10.1) Triglycerides Level 289 mg/dl (0-150) Cholesterol Level 171 mg/dl (0-200) HDL Cholesterol 36 mg/dl LDL Cholesterol, Calculated 77 mg/dl VLDL Cholesterol, Calculated 58 mg/dl Cholesterol/HDL Ratio 4.8 Impression Acute ischemic infarct to the posterior limb of the right internal capsule adjacent to the left thalamus. Risk factors for this patient include age, cigarette smoking, and probably hypertriglyceridemia. Clinically, this patient has very mild weakness and dysmetria of the left upper and lower limbs. Plan I agree with daily aspirin This patient will need a carotid ultrasound. If there is evidence of a significant stenotic lesion on this test he should have a follow-up MRA or CTA of the neck. PT/OT Please contact me if I may be of further assistance
[2017-09-17] MEDS ORDERED: LPT40 PO (10:26)
[2017-09-17] MEDS ORDERED: ASPI-320 PO (10:26)
[2017-09-17] MEDS ORDERED: LPT/40 PO (10:26)
--- NOTE | 2017-09-17 10:36 | Discharge Instructions ---
Discharge Instructions Date of Service Sep 17, 2017. Admission Reason for Admission: Ataxia Discharge Discharge Diagnosis / Problem: right internal capsule, posterior limb, stroke Discharge Goals Goal(s): Diagnostic testing, Therapeutic intervention Activity Recommendations Activity Limitations: as noted below Lifting Limitations: gradually increase as tolerated Please consider talking to Dr Greer about your Ritalin and to continue to monitor your blood pressure . Instructions / Follow-Up Instructions / Follow-Up Risk Factors for Stroke: You can reduce your chances of stroke by working with your medical provider to adopt a healthy lifestyle. Some specific ways to lower your chance of stroke are: * If you are a smoker, now is the time to stop smoking cigarettes * If you are diabetic, improve the control of your blood sugars * Avoid excessive amounts of alcohol * Control high blood pressure * Lose weight if you are overweight * Be sure to lead an active lifestyle * Eat a healthy diet low in salt, cholesterol and fat You should know about other risk factors for stroke that you are unable to control. These include: * Age 55 years or older * Male gender * Certain racial groups: , or / * Family History of Stroke, Mini stroke or Heart Attack * Sickle Cell Disease Follow Up: It is important for you to keep your follow up appointments with your medical provider. Current Hospital Diet Patient's current hospital diet: Regular Diet Discharge Diet Recommended Diet: Low Sodium Diet (2gm Na) Pending Studies Studies pending at discharge: no Laboratory Results Hemoglobin A1c Test 09/17/17 05:44 Range/Units Estimated Average Glucose 105 mg/dl Hemoglobin A1c 5.3 4.5-5.6 % Lipid Panel Test 09/17/17 05:44 Range/Units Triglycerides Level 289 H 0-150 mg/dl Cholesterol Level 171 0-200 mg/dl HDL Cholesterol 36 mg/dl Cholesterol/HDL Ratio 4.8 LDL Cholesterol, Calculated 77 mg/dl Medical Emergencies . Who to Call and When: Medical Emergencies: Call 911 immediately if you experience any of the following warning signs and symptoms of Stroke: * Sudden numbness or weakness of the face, arm or leg, especially on one side of the body * Sudden confusion, trouble speaking or understanding * Sudden trouble seeing in one or both eyes * Sudden trouble walking, dizziness, loss of balance or coordination * Sudden severe headache with no cause Do not delay calling 911 if you experience any warning signs or symptoms of a stroke. Delay in seeking medical attention may affect what treatments can be given to you. . Non-Emergent Contact Non-Emergency issues call your: Primary Care Provider Call Non-Emergent contact if: temperature is above 101, your pain is unusual for you . . "Provider Documentation" section prepared by Jonnie Lamas. . Stroke Core Measures Reason no t-PA for Stroke: Treatment not indicated Reason no antithrom by day 2: Treatment provided - N/A Reason no antithrom at D/C: Treatment provided - N/A Reason no statin at D/C: Treatment provided - N/A Reason no anticoag w/a fib: Treatment not indicated
--- NOTE | 2017-09-17 11:11 | Pharmacy Progress Note ---
Pharmacist Stroke Counseling Date of Service Sep 17, 2017. Scope Pharmacy has been consulted to provide medication discharge counseling for this patient admitted with ischemic stroke/hemorrhagic stroke/ transient ischemic attack as per the Pharmacist Discharge Counseling for Stroke Patients Protocol. Medications on Discharge New Medications: Atorvastatin (Lipitor) 40 Mg Tab 40 MG PO DAILY, #90 TAB 3 Refills Aspirin (Aspirin EC Low Dose) 81 Mg Ectab 81 MG PO QAM, #120 DOSE Atorvastatin (Lipitor) 40 Mg Tab 40 MG PO QAM, #30 TAB 5 Refills Continued Medications: Atenolol (Tenormin) 25 Mg Tab 25 MG PO QPM, TAB Methylphenidate (Ritalin) 10 Mg Tab 10 MG PO QID, TAB Action The above medications, specifically ones for stroke treatment/prophylaxis, have been reviewed in detail with the patient and/or patient labor union business representative(s) prior to discharge. This includes indication, common adverse reactions, drug interactions, and medication administration. Medication counseling has been employed using the teach-back method to ensure understanding. Outcome The patient and/or patient labor union business representative(s) have demonstrated understanding of the medications. Please note, they are aware that the pharmacist will call them within 72 hours post-discharge to confirm that the appropriate medications are being taken and answer any further medication related questions the patient might have at that time. Contact information Individual to be contacted: patient Phone number: [phone] Best time to call: anytime Thank you for allowing pharmacy to be involved in the care of this patient. Please call [phone] or [phone] with any additional questions
--- NOTE | 2017-09-17 18:09 | Discharge Summary ---
Discharge Summary Date of Service Sep 17, 2017. Discharge Summary Admission Date: Sep 16, 2017 at 17:45 Discharge Date: Sep 17, 2017 Discharge Disposition: Home Principal Diagnosis: subacute right internal capsule infarct Medication Reconciliation New Medications: Atorvastatin (Lipitor) 40 Mg Tab 40 MG PO DAILY, #90 TAB 3 Refills Aspirin (Aspirin EC Low Dose) 81 Mg Ectab 81 MG PO QAM, #120 DOSE Atorvastatin (Lipitor) 40 Mg Tab 40 MG PO QAM, #30 TAB 5 Refills Continued Medications: Atenolol (Tenormin) 25 Mg Tab 25 MG PO QPM, TAB Methylphenidate (Ritalin) 10 Mg Tab 10 MG PO QID, TAB Discharge Exam Review of Systems: Constitutional: No fever, No chills Respiratory: No cough, No shortness of breath Cardiovascular: No chest pain, No edema Abdomen: No pain, No nausea, No vomiting, No diarrhea, No constipation Musculoskeletal: No joint pain, No muscle pain Neurologic: + weakness, No memory loss, No paralysis Physical Exam: General Appearance: WD/WN, no apparent distress Eyes: normal inspection, sclerae normal Neck: supple, no JVD Respiratory/Chest: chest non-tender, lungs clear, normal breath sounds Cardiovascular: regular rate, rhythm, no murmur Abdomen / GI: normal bowel sounds, non tender, soft Neurologic/Psychiatric: alert, oriented x 3 Hospital Course Mr. Wilson is a 67 y/o male with PMHx of HTN and ADHD who presents to the ED c/o L sided numbness/tingling and ambulatory dysfunction starting on 09/15 around 0800. Ataxis and L Arm Numbness - right internal capsule subacute infact, pt has only very mild left leg weakness but feels its 90% normal - Obtain MRI shows 2mm infarct posterior limb of the right internal caspule and chronic small vessel disease - Start ASA 81 mg - reports intermittent use at home - Start Atorvastatin 40 mg daily -discussed the need for secondary risk prevention, and to discuss his Ritalin use with pcp ADHD: - Ritalin 10 mg BID HTN: Atenolol and allowe permissive HTN Code Status: FULL RESUSCITATION We elected to not perform carotid ultrasound and since this was not a very large MCA territory issue will allow Dr Joaquina Bryant to decide if he wished to perform this as an outpt Total Time Spent: Greater than 30 minutes This includes examination of the patient, discharge planning, medication reconciliation, and communication with other providers. Discharge Instructions Please refer to the electronic Patient Visit Report (Discharge Instructions) for additional information.
--- NOTE | 2017-09-20 15:43 | Pharmacy Progress Note ---
Pharmacist Post D/C Phone Note Date of phone call: Sep 20, 2017. Individual with whom pharmacist spoke to: Patient The following questions were reviewed during the phone call with responses listed below each: Can you tell me the medications that you are currently taking as well as when and how you take each medication? - New medications: Liptor and Asa When have you missed any doses of your medications? - none What side effects are you having from your medications? - muscle pain What questions do you have about your medications? - none What problems are you having obtaining your medications? - none When is your next appointment with your primary care doctor? - 09/28/17 Additional comments: - Mr. Wilson has been experiencing some myopathy. He hinted that he may not be able to continue the lipitor if the pain continued. I urged him to discuss this w. Dr. Joaquina Bryant. In the mean time to continue with his statin as prescribed. I informed him that CoQ10 is a possibility. Further, that Dr. Joaquina Bryant may adjust his dose to help mitigate further muscle pxn. As per the Pharmacist Discharge Counseling for Stroke Patients Protocol, this phone call has been completed within 72 hours of discharge. Thank you for allowing us to be involved in the care of this patient. OR The patient and/or patient sales promotion representative(s) were unable to be reached for a follow-up phone call within the 72 hour time frame. Discharge counseling pharmacist contact information has already been provided to the patient should questions arise. Thank you for allowing us to be involved in the care of this patient.
== END 2017-09-17 11:56 | disposition home or self-care (01) | DRG 66 ==
LOC: C.EDB 11:56 → C.2T 14:58 → ENRESERV 15:51 → EDBEDREQ 16:10 → OBSVTOIN 17:45
PROVIDERS: ADMIT Internal Medicine; ATTEND Internal Medicine
DX: I63.8 Other cerebral infarction (principal); G83.14 Monoplegia of lower limb affecting left nondominant side; R20.0 Anesthesia of skin; R20.2 Paresthesia of skin; R27.0 Ataxia, unspecified; I10 Essential (primary) hypertension; F90.9 Attention-deficit hyperactivity disorder, unspecified type; F17.200 Nicotine dependence, unspecified, uncomplicated; Z79.899 Other long term (current) drug therapy; Z91.030 Bee allergy status

== ENCOUNTER 2017-10-20 08:02 | Emergency (ER) | payer OTHER ==
[~2017-10-20] VITALS: Ht 177.8 cm; Wt 93.2 kg
[~2017-10-20 08:02] MED LIST changes: -ASPI-113 PO; +ASPI-320 PO; +LPT/40 PO; +LPT40 PO; +METH10TA4 PO; -OMEGCAP2 PO
[2017-10-20 08:04] VITALS: TEMP 36.9; Ht 177.8 cm; Wt 93.2 kg
[2017-10-20] MEDS ORDERED: SODIUM CHLORIDE 0.9% 500ML 500 ML IV STA (08:26)
[2017-10-20] MEDS ORDERED: ONDANSETRON INJ 2 MG/ML 2 ML VIAL IV STA (08:26)
[2017-10-20] MEDS ORDERED: SODIUM CHLORIDE 0.9% 1000ML 1,000 ML IV STA (08:26)
[2017-10-20] MEDS ORDERED: FENTANYL CITRATE INJ 50 MCG/1 ML 2 ML VIAL IV STA (08:26)
--- NOTE | 2017-10-20 08:29 | EMERGENCY ROOM VISIT NOTE ---
History Report prepared by Rachell: Chucho Mendoza Under the Supervision of: Dr. Shadia Roque M.D. First contact with patient: 08:10 Chief Complaint: HEADACHE Stated Complaint: headaches History of Present Illness The patient is a 67 year old male who presents to the Emergency Room with complaints of a constant headache that began last night. The patient describes his headache as "tremendous." He adds that the headache is in the "middle of his brain." He denies any recent falls that could have caused the headache. He is not vomiting, and there has not been any visual irregularities. He notes that he had a mini stroke on the 17 of September, 1 month ago. He was started on Lipitor following this event. He does believe that the Lipitor is causing diffuse muscle stiffness across his body. Source of History: patient Onset: Last night Position: head Symptom Intensity: Tremendous Quality: other (Headache) Timing: constant Associated Symptoms: No vomiting Review of Systems See HPI for pertinent positives & negatives. A total of 10 systems reviewed and were otherwise negative. Past Medical & Surgical Medical Problems: (1) Acute lacunar infarction (2) Ataxia (3) Hypertension Family History Stroke Social History Smoking Status: Former Smoker Drug Use: none Marital Status: Housing Status: lives with significant other Occupation Status: retired Current/Historical Medications Scheduled Amoxicillin & Pot Clavulanate (Augmentin 875-125 mg), 1 TAB PO BID Aspirin (Aspirin EC Low Dose), 81 MG PO QAM Atenolol (Tenormin), 25 MG PO QPM Allergies Coded Allergies: Bee Venom (Verified Allergy, Unknown, Unknown, 10/21/17) Physical Exam Vital Signs Date Time Temp Pulse Resp B/P (MAP) Pulse Ox O2 Delivery O2 Flow Rate FiO2 10/20/17 12:39 64 18 134/91 92 10/20/17 11:00 72 18 92 Room Air 10/20/17 09:21 64 10/20/17 09:15 67 18 170/95 92 Room Air 10/20/17 08:52 95 18 155/91 94 Room Air 10/20/17 08:19 65 18 155/91 95 Room Air 10/20/17 08:04 36.9 71 18 174/97 95 Room Air Physical Exam Vital signs reviewed. General: Well-appearing male, in no significant distress. HEENT: No scleral icterus, PERRLA, neck supple. Atraumatic. No meningeal signs. Cardiovascular: Regular rate and rhythm, no extra sounds. Pulmonary: Clear to auscultation bilaterally, normal work of breathing. Abdomen: Soft, nontender, nondistended, positive bowel sounds. Musculoskeletal: Atraumatic, no peripheral edema. Neurologic: Patient awake alert and oriented x 3, full strength in all 4 extremities. Cranial nerves 2 through 12 grossly intact. Skin: Warm, dry, no rash Medical Decision & Procedures ER Provider Diagnostic Interpretation: Radiology results as stated below per my review and radiologist interpretation: HEAD WITHOUT CONTRAST (CT) CLINICAL HISTORY: 67 years-old Male with headache, 3 weeks s/p CVA. Acute headache with recent acute lacunar infarction of the right internal capsule and right thalamus TECHNIQUE: Multiple axial CT images of the head were obtained without contrast. A dose lowering technique was utilized adhering to the principles of ALARA. CT DOSE: 941.65 mGycm COMPARISON: MRI brain 09/16/2017, CT head 09/16/2017. FINDINGS: No acute intracranial hemorrhage, midline shift, intracranial mass, hydrocephalus, territorial ischemia or abnormal extra-axial collection. Moderate degree of ill-defined low-attenuation within the periventricular and subcortical white matter compatible with chronic microvascular ischemic changes. Focal 5 mm area of ill-defined low-attenuation of the right thalamus correlates with a subacute lacunar infarction as described on comparison study. No hemorrhage identified. The calvarium is intact. Mild mucosal thickening of the ethmoid, sphenoid and maxillary sinuses. Hypoplasia of the right frontal sinus. Mastoid air cells and middle ear cavities are clear. Soft tissues and orbits are unremarkable. IMPRESSION: 1. No acute intracranial abnormality identified. 2. Moderate chronic microvascular ischemic changes with subacute lacunar infarction about the right thalamus. No hemorrhage identified. 3. Mild paranasal sinus disease. The above report was generated using voice recognition software. It may contain grammatical, syntax or spelling errors. Electronically signed by: William Gonzalez M.D. 10/20/2017 9:14 AM Dictated Date/Time: 10/20/2017 9:10 AM Laboratory Results 10/20/17 08:47 Red Blood Count 5.24, Mean Corpuscular Volume 92.7, Mean Corpuscular Hemoglobin 34.2, Mean Corpuscular Hemoglobin Concent 36.8, Mean Platelet Volume 9.6, Neutrophils (%) (Auto) 87.0, Lymphocytes (%) (Auto) 6.6, Monocytes (%) (Auto) 6.0, Eosinophils (%) (Auto) 0.0, Basophils (%) (Auto) 0.1, Neutrophils # (Auto) 5.96, Lymphocytes # (Auto) 0.45, Monocytes # (Auto) 0.41, Eosinophils # (Auto) 0.00, Basophils # (Auto) 0.01 10/20/17 08:47 Test 10/20/17 08:47 White Blood Count 6.85 K/uL (4.8-10.8) Red Blood Count 5.24 M/uL (4.7-6.1) Hemoglobin 17.9 g/dL (14.0-18.0) Hematocrit 48.6 % (42-52) Mean Corpuscular Volume 92.7 fL (80-100) Mean Corpuscular Hemoglobin 34.2 pg (25-34) Mean Corpuscular Hemoglobin Concent 36.8 g/dl (32-36) Platelet Count 168 K/uL (130-400) Mean Platelet Volume 9.6 fL (7.4-10.4) Neutrophils (%) (Auto) 87.0 % Lymphocytes (%) (Auto) 6.6 % Monocytes (%) (Auto) 6.0 % Eosinophils (%) (Auto) 0.0 % Basophils (%) (Auto) 0.1 % Neutrophils # (Auto) 5.96 K/uL (1.4-6.5) Lymphocytes # (Auto) 0.45 K/uL (1.2-3.4) Monocytes # (Auto) 0.41 K/uL (0.11-0.59) Eosinophils # (Auto) 0.00 K/uL (0-0.5) Basophils # (Auto) 0.01 K/uL (0-0.2) RDW Standard Deviation 42.6 fL (36.4-46.3) RDW Coefficient of Variation 12.5 % (11.5-14.5) Immature Granulocyte % (Auto) 0.3 % Immature Granulocyte # (Auto) 0.02 K/uL (0.00-0.02) Anion Gap 6.0 mmol/L (3-11) Est Creatinine Clear Calc Drug Dose 74.7 ml/min Estimated GFR () 80.1 Estimated GFR (Non- 69.1 BUN/Creatinine Ratio 13.4 (10-20) Calcium Level 8.9 mg/dl (8.5-10.1) Magnesium Level 2.1 mg/dl (1.8-2.4) Total Bilirubin 0.5 mg/dl (0.2-1) Direct Bilirubin 0.2 mg/dl (0-0.2) Aspartate Amino Transf (AST/SGOT) 42 U/L (15-37) Alanine Aminotransferase (ALT/SGPT) 63 U/L (12-78) Alkaline Phosphatase 104 U/L (45-117) Total Creatine Kinase 42 U/L (39-308) Total Protein 7.6 gm/dl (6.4-8.2) Albumin 3.5 gm/dl (3.4-5.0) Laboratory results per my review. Medications Administered Medications (Trade) Dose Ordered Sig/Bertha Route Start Time Stop Time Status Last Admin Dose Admin Sodium Chloride 500 ml @ 999 mls/hr Q31M STAT IV 10/20/17 08:26 10/20/17 08:56 DC 10/20/17 08:51 999 MLS/HR Sodium Chloride 1,000 ml @ 150 mls/hr Q6H40M STAT IV 10/20/17 08:26 10/20/17 13:18 DC 10/20/17 08:50 150 MLS/HR Fentanyl Citrate (Fentanyl Inj) 100 mcg NOW STAT IV 10/20/17 08:26 10/20/17 08:28 DC 10/20/17 08:51 100 MCG Ondansetron HCl (Zofran Inj) 4 mg NOW STAT IV 10/20/17 08:26 10/20/17 08:28 DC 10/20/17 08:50 4 MG Ketorolac Tromethamine (Toradol Inj) 30 mg NOW STAT IV 10/20/17 10:03 10/20/17 10:05 DC 10/20/17 11:02 30 MG Prochlorperazine Edisylate (Compazine Inj) 5 mg NOW STAT IV 10/20/17 10:03 10/20/17 10:05 DC 10/20/17 11:01 5 MG Diphenhydramine HCl (Benadryl Inj) 25 mg NOW STAT IV 10/20/17 10:03 10/20/17 10:06 DC 10/20/17 11:01 25 MG ECG Per My Interpretation Indication: other (Migraine) Rate (beats per minute): 66 Rhythm: normal sinus Findings: other (No SILVIO/STD, no PVCs) ED Course 0824: Past medical records reviewed. The patient was evaluated in room A12B. A complete history and physical examination was performed. 0826: Ordered Zofran 4 mg IV, Fentanyl 100 mcg IV, Sodium Chloride 1000 mL @ 150 mL/hr IV, Sodium Chloride 500 mL @ 999 mL/hr IV. 1003: Ordered Benadryl 25 mg IV, Compazine 5 mg IV, Toradol 30 mg IV. 1127: Upon reevaluation, the patient appeared to have improvement of his symptoms. I discussed findings with him. He verbalized agreement of the treatment plan. the patient was discharged home. Medical Decision Differential diagnosis: Etiologies such as migraine headache, medication reaction, meningitis, sinusitis , CO exposure, ICH, SAH, infection, tumor, headache, sinus thrombosis, arterial dissection, as well as others were entertained. This patient was evaluated and appeared to be in no significant distress. IV access was obtained and laboratory work was drawn. Patient was placed on the wood tile installation helper and found to be in a normal sinus rhythm. He was hydrated with normal saline solution, given IV fentanyl and Zofran for his discomforts. CT scan of the head was performed and is negative for acute intracranial pathology although the previous infarction is noted. Laboratory work is fairly reassuring. There is no elevation of the total CK or liver enzymes. I suspect the patient's myalgias are related to the statin prescribed several weeks ago. He was advised to stop this medication and discuss this with his PCP as soon as possible. Patient was concerned about some residual pain, he was given IV Toradol 30 mg, 5 mg of IV Compazine and 25 mg of IV Benadryl. After several hours of observation, patient was feeling improved and felt stable for discharge. He was discharged to the care of his was advised to follow-up with his PCP. He will return to the emergency department for worsening of symptoms or any medical concerns. Medication Reconcilliation Current Medication List: was personally reviewed by me Blood Pressure Screening Patient's blood pressure: Elevated blood pressure Impression Primary Impression: Headache Additional Impressions: Myalgia Status post stroke Scribe Attestation The scribe's documentation has been prepared under my direction and personally reviewed by me in its entirety. I confirm that the note above accurately reflects all work, treatment, procedures, and medical decision making performed by me. Departure Information Dispostion Home / Self-Care Referrals Jus Liu M.D. (PCP) Forms HOME CARE DOCUMENTATION FORM, IMPORTANT VISIT INFORMATION Patient Instructions My [facility] Additional Instructions Diagnosis: Headache, myalgias, status post stroke Please hold your Lipitor. Discuss treatment options with your PCP. Tylenol 650 mg every 6 hours as needed for pain. Zofran 4 mg ODT every 6 hours as needed for nausea. Follow-up with Dr. Greer this week for reevaluation of your symptoms. Return to the ER for worsening of symptoms or any medical concerns. Problem Qualifiers
[2017-10-20 09:04] LABS: BASO % 0.1 %; BASO ABS # 0.01 K/uL (0-0.2); HEMATOCRIT 48.6 % (42-52); HEMOGLOBIN 17.9 g/dL (14.0-18.0); IG# 0.02 K/uL (0.00-0.02); LYMPH % 6.6 %; LYMPH ABS # 0.45 K/uL (1.2-3.4); MEAN CELL VOLUME 92.7 fL (80-100); MEAN CORPUSCULAR HEMOGLOBIN 34.2 pg (25-34); MEAN CORPUSCULAR HGB CONC 36.8 g/dl (32-36); MEAN PLATELET VOLUME 9.6 fL (7.4-10.4); MONO ABS # 0.41 K/uL (0.11-0.59); NEUT ABS # 5.96 K/uL (1.4-6.5); PLATELET COUNT 168 K/uL (130-400); RED CELL DISTRIBUTION WIDTH CV 12.5 % (11.5-14.5); RED CELL DISTRIBUTION WIDTH SD 42.6 fL (36.4-46.3); WHITE BLOOD COUNT 6.85 K/uL (4.8-10.8)
--- NOTE | 2017-10-20 09:15 | DIAGNOSTIC IMAGING REPORT ---
HEAD WITHOUT CONTRAST (CT) CLINICAL HISTORY: 67 years-old Male with headache, 3 weeks s/p CVA. Acute headache with recent acute lacunar infarction of the right internal capsule and right thalamus TECHNIQUE: Multiple axial CT images of the head were obtained without contrast. A dose lowering technique was utilized adhering to the principles of ALARA. CT DOSE: 941.65 mGycm COMPARISON: MRI brain 09/16/2017, CT head 09/16/2017. FINDINGS: No acute intracranial hemorrhage, midline shift, intracranial mass, hydrocephalus, territorial ischemia or abnormal extra-axial collection. Moderate degree of ill-defined low-attenuation within the periventricular and subcortical white matter compatible with chronic microvascular ischemic changes. Focal 5 mm area of ill-defined low-attenuation of the right thalamus correlates with a subacute lacunar infarction as described on comparison study. No hemorrhage identified. The calvarium is intact. Mild mucosal thickening of the ethmoid, sphenoid and maxillary sinuses. Hypoplasia of the right frontal sinus. Mastoid air cells and middle ear cavities are clear. Soft tissues and orbits are unremarkable. IMPRESSION: 1. No acute intracranial abnormality identified. 2. Moderate chronic microvascular ischemic changes with subacute lacunar infarction about the right thalamus. No hemorrhage identified. 3. Mild paranasal sinus disease. The above report was generated using voice recognition software. It may contain grammatical, syntax or spelling errors. Electronically signed by: William Gonzalez M.D. 10/20/2017 9:14 AM Dictated Date/Time: 10/20/2017 9:10 AM
[2017-10-20 09:19] LABS: ALBUMIN 3.5 gm/dl (3.4-5.0); CALCIUM 8.9 mg/dl (8.5-10.1); CREATININE 1.1 mg/dl (0.60-1.40); TOTAL PROTEIN 7.6 gm/dl (6.4-8.2)
[2017-10-20] MEDS ORDERED: KETOROLAC TROMETHAMINE 30 MG/ML VIAL IV STA (10:03)
[2017-10-20] MEDS ORDERED: DiphenhydrAMINE HCL 50 MG/ML VIAL IV STA (10:03)
[2017-10-20] MEDS ORDERED: PROCHLORPERAZINE 5 MG/ML 2 ML VIAL IV STA (10:03)
[2017-10-20] MEDS ORDERED: ONDA4TAB10 SL (11:18)
[2017-10-20 12:39] VITALS: BP 134/91; PULSE 64; O2SAT 92
[2017-10-21] MEDS ORDERED: AMOX875T PO (22:34)
== END 2017-10-20 12:40 | disposition home or self-care (01) ==
LOC: C.EDB 08:04 → C.EDA 12:40
DX: R51 Headache (principal); M79.1 Myalgia; Z86.73 Personal history of transient ischemic attack (TIA), and cerebral infarction without residual deficits; I10 Essential (primary) hypertension; Z82.3 Family history of stroke; Z87.891 Personal history of nicotine dependence; Z79.82 Long term (current) use of aspirin; Z79.899 Other long term (current) drug therapy; Z91.030 Bee allergy status

== ENCOUNTER 2017-10-21 18:59 | Emergency (ER) | payer OTHER ==
[~2017-10-21] VITALS: Ht 177.8 cm; Wt 93.4 kg
[~2017-10-21 18:59] MED LIST changes: -LPT/40 PO; -LPT40 PO; -METH10TA4 PO; +ONDA4TAB10 SL
[2017-10-21 19:02] VITALS: TEMP 36.7; Ht 177.8 cm; Wt 93.4 kg
[2017-10-21] MEDS ORDERED: DiphenhydrAMINE HCL 50 MG/ML VIAL IV STA (19:20)
[2017-10-21] MEDS ORDERED: SODIUM CHLORIDE 0.9% 1000ML 1,000 ML IV STA (19:20)
[2017-10-21] MEDS ORDERED: ACETAMINOPHEN IV 100 ML IV STA (19:20)
[2017-10-21] MEDS ORDERED: PROCHLORPERAZINE 5 MG/ML 2 ML VIAL IV STA (19:20)
[2017-10-21] MEDS ORDERED: MAGNESIUM SULFATE 1GM / D5W 1 GM BAG IV STA (19:20)
[2017-10-21] MEDS ORDERED: SODIUM CHLORIDE 0.65% NA SOLN 45 ML (OCEAN) STA (19:26)
[2017-10-21] MEDS ORDERED: AMOXICILLIN/CLAVULANATE TAB 875 MG TAB PO ONE (19:30)
[2017-10-21 19:31] LABS: HEMATOCRIT 46.3 % (42-52); HEMOGLOBIN 17.1 g/dL (14.0-18.0); MEAN CELL VOLUME 90.4 fL (80-100); MEAN CORPUSCULAR HEMOGLOBIN 33.4 pg (25-34); MEAN CORPUSCULAR HGB CONC 36.9 g/dl (32-36); RED CELL DISTRIBUTION WIDTH CV 12.5 % (11.5-14.5); RED CELL DISTRIBUTION WIDTH SD 41.3 fL (36.4-46.3); WHITE BLOOD COUNT 5.28 K/uL (4.8-10.8)
[2017-10-21 19:58] LABS: ALBUMIN 3.2 gm/dl (3.4-5.0); CALCIUM 8.7 mg/dl (8.5-10.1); CREATININE 1.06 mg/dl (0.60-1.40); POTASSIUM 3.8 mmol/L (3.5-5.1); TOTAL PROTEIN 7.4 gm/dl (6.4-8.2)
[2017-10-21 20:18] LABS: MEAN PLATELET VOLUME 9.3 fL (7.4-10.4); PLATELET COUNT 99 K/uL (130-400)
[2017-10-21 20:19] LABS: BASO % 0.4 %; BASO ABS # 0.02 K/uL (0-0.2); IG# 0.02 K/uL (0.00-0.02); LYMPH % 7.8 %; LYMPH ABS # 0.41 K/uL (1.2-3.4); MONO % 4.9 %; MONO ABS # 0.26 K/uL (0.11-0.59); NEUT % 86.5 %; NEUT ABS # 4.57 K/uL (1.4-6.5)
[2017-10-21] MEDS ORDERED: GADAVIST IV PRN (21:30)
--- NOTE | 2017-10-21 21:31 | DIAGNOSTIC IMAGING REPORT ---
Brain MRA HISTORY: Pt c/o severe headache TECHNIQUE: 3-D [id number] MRA of the brain was performed without contrast. COMPARISON STUDY: Brain MRI 09/16/2017. FINDINGS: Visualized intracranial internal carotid arteries, distal vertebral arteries, and basilar artery are widely patent. There is no significant stenosis, occlusion, or aneurysm seen within the bilateral ACAs, MCAs, or veterinary anatomist. 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 The left GROUP HOME MANAGER is fed through the left posterior communicating artery. IMPRESSION: No significant stenosis, occlusion, or aneurysm within the robinson of [place]. Electronically signed by: Gilberto Pacheco M.D. 10/21/2017 9:30 PM Dictated Date/Time: 10/21/2017 9:23 PM
--- NOTE | 2017-10-21 21:38 | DIAGNOSTIC IMAGING REPORT ---
Brain MRI WITH AND WITHOUT CONTRAST HISTORY: Pt c/o severe headache TECHNIQUE: Multiplanar multisequence MRI of the brain was performed both before and after the intravenous administration of contrast. COMPARISON STUDY: Head CT 10/20/2017. FINDINGS: There is a 7 mm focus of increased signal within the posterior limb of the right internal capsule on the T2-weighted sequences. This demonstrates questionable loss of signal on the ADC map. Therefore, this favors a subacute to chronic lacunar infarct. There is no old lacunar infarct within the right thalamus. Multiple scattered foci of T2 hyperintensity seen within the periventricular and subcortical white matter. These are nonspecific but favor moderate microvascular ischemic change. There is no mass, hematoma, midline shift. The ventricles and sulci demonstrate mild age-related involutional changes. The major vascular flow-voids at the skull base are well-maintained. Mild mucosal thickening within the paranasal sinuses. The mastoid air cells are clear. Motion artifact on the postcontrast sequences resulting in suboptimal evaluation. However, no definite abnormal enhancement identified. IMPRESSION: 1. A 7 mm subacute to chronic lacunar infarct within the posterior limb of the right internal capsule. 2. There is an old punctate lacunar infarct within the right thalamus. 3. Presumed moderate microvascular ischemic changes. Electronically signed by: Gilberto Pacheco M.D. 10/21/2017 9:37 PM Dictated Date/Time: 10/21/2017 9:30 PM
[2017-10-21] MEDS ORDERED: KETOROLAC TROMETHAMINE 30 MG/ML VIAL IV STA (21:49)
[2017-10-21] MEDS ORDERED: DEXAMETHASONE INJ 10 MG in SYRINGE 0 ML IV STA (21:49)
[2017-10-21] MEDS ORDERED: VALPROATE SOD IV 500 MG in DEXTROSE 5% 50ML 50 ML IV STA (21:49)
[2017-10-21] MEDS ORDERED: DEXAMETHASONE **PF** INJ 10 MG/ML VIAL ONE (22:00)
[2017-10-21] MEDS ORDERED: AMOX875T PO (22:34)
--- NOTE | 2017-10-21 23:06 | EMERGENCY ROOM VISIT NOTE ---
History Report prepared by Rachell: Akua Centeno Under the Supervision of: Dr. Pedro Lance M.D. First contact with patient: 19:12 Chief Complaint: HEADACHE Stated Complaint: PAIN IN BRAIN, PRIOR STROKES 09/17 10/18 History of Present Illness The patient is a 67 year old male who presents to the Emergency Room with complaints of a sudden headache starting 3 days ago. The patient states that he was here yesterday. He states that it just continues to get worse. He notes that it started in the front of his head and has moved to the back. He notes that he started taking Lipitor right before the headache came on. The patient states that he was here yesterday and had a CT done. The patient complains of neck pain and not being able to sleep the past 2 nights. The patient denies back pain and abdominal pain. The patient notes that he takes a baby Aspirin daily. Source of History: patient Onset: 3 days ago Position: head Quality: ache Timing: other (sudden) Associated Symptoms: + neck pain, No abdominal pain, No back pain Note: The patient complains of not being able to sleep the past 2 nights. Review of Systems See HPI for pertinent positives & negatives. A total of 10 systems reviewed and were otherwise negative. Past Medical & Surgical Medical Problems: (1) Acute lacunar infarction (2) Ataxia (3) Hypertension Family History Stroke Social History Smoking Status: Former Smoker Drug Use: none Marital Status: Housing Status: lives with significant other Current/Historical Medications Scheduled Amoxicillin & Pot Clavulanate (Augmentin 875-125 mg), 1 TAB PO BID Aspirin (Aspirin EC Low Dose), 81 MG PO QAM Atenolol (Tenormin), 25 MG PO QPM Allergies Coded Allergies: Bee Venom (Verified Allergy, Unknown, Unknown, 10/21/17) Physical Exam Vital Signs Date Time Temp Pulse Resp B/P (MAP) Pulse Ox O2 Delivery O2 Flow Rate FiO2 10/21/17 22:00 62 18 122/78 94 Room Air 10/21/17 21:22 66 18 175/92 96 Room Air 10/21/17 19:48 70 10/21/17 19:02 36.7 67 18 160/87 96 Room Air Physical Exam GENERAL: Awake, alert, well-appearing, in no acute distress HENT: Normocephalic, atraumatic. Oropharynx unremarkable. No evidence of meningitis or encephalitis on exam. EYES: Normal conjunctiva. Sclera non-icteric. NECK: Supple. No nuchal rigidity. FROM. No JVD. RESPIRATORY: Clear to auscultation. CARDIAC: Regular rate, normal rhythm. Extremities warm and well perfused. Pulses equal. ABDOMEN: Soft, non-distended. No tenderness to palpation. No rebound or guarding. No masses. RECTAL: Deferred. MUSCULOSKELETAL: Chest examination reveals no tenderness. The back is symmetrical on inspection without obvious abnormality. There is no CVA tenderness to palpation. No joint edema. LOWER EXTREMITIES: Calves are equal size bilaterally and non-tender. No edema. No discoloration. NEURO: Normal sensorium. No sensory or motor deficits noted. SKIN: No rash or jaundice noted. Medical Decision & Procedures ER Provider Diagnostic Interpretation: Radiology results as stated below per my review and radiologist interpretation: Brain MRA HISTORY: Pt c/o severe headache TECHNIQUE: 3-D [id number] MRA of the brain was performed without contrast. COMPARISON STUDY: Brain MRI 09/16/2017. FINDINGS: Visualized intracranial internal carotid arteries, distal vertebral arteries, and basilar artery are widely patent. 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 The left CHARACTER IMPERSONATOR is fed through the left posterior communicating artery. IMPRESSION: No significant stenosis, occlusion, or aneurysm within the [employer] [place] [employer] [place]. Electronically signed by: Gilberto Pacheco M.D. 10/21/2017 9:30 PM Dictated Date/Time: 10/21/2017 9:23 PM Brain MRI WITH AND WITHOUT CONTRAST HISTORY: Pt c/o severe headache TECHNIQUE: Multiplanar multisequence MRI of the brain was performed both before and after the intravenous administration of contrast. COMPARISON STUDY: Head CT 10/20/2017. FINDINGS: There is a 7 mm focus of increased signal within the posterior limb of the right internal capsule on the T2-weighted sequences. This demonstrates questionable loss of signal on the ADC map. Therefore, this favors a subacute to chronic lacunar infarct. There is no old lacunar infarct within the right thalamus. Multiple scattered foci of T2 hyperintensity seen within the periventricular and subcortical white matter. These are nonspecific but favor moderate microvascular ischemic change. There is no mass, hematoma, midline shift. The ventricles and sulci demonstrate mild age-related involutional changes. The major vascular flow-voids at the skull base are well-maintained. Mild mucosal thickening within the paranasal sinuses. The mastoid air cells are clear. Motion artifact on the postcontrast sequences resulting in suboptimal evaluation. However, no definite abnormal enhancement identified. IMPRESSION: 1. A 7 mm subacute to chronic lacunar infarct within the posterior limb of the right internal capsule. 2. There is an old punctate lacunar infarct within the right thalamus. 3. Presumed moderate microvascular ischemic changes. Electronically signed by: Gilberto Pacheco M.D. 10/21/2017 9:37 PM Dictated Date/Time: 10/21/2017 9:30 PM Laboratory Results 10/21/17 19:16 Red Blood Count 5.12, Mean Corpuscular Volume 90.4, Mean Corpuscular Hemoglobin 33.4, Mean Corpuscular Hemoglobin Concent 36.9, Mean Platelet Volume 9.3, Neutrophils (%) (Auto) 86.5, Lymphocytes (%) (Auto) 7.8, Monocytes (%) (Auto) 4.9, Eosinophils (%) (Auto) 0.0, Basophils (%) (Auto) 0.4, Neutrophils # (Auto) 4.57, Lymphocytes # (Auto) 0.41, Monocytes # (Auto) 0.26, Eosinophils # (Auto) 0.00, Basophils # (Auto) 0.02 10/21/17 19:16 Test 10/21/17 19:16 10/21/17 22:14 White Blood Count 5.28 K/uL (4.8-10.8) Red Blood Count 5.12 M/uL (4.7-6.1) Hemoglobin 17.1 g/dL (14.0-18.0) Hematocrit 46.3 % (42-52) Mean Corpuscular Volume 90.4 fL (80-100) Mean Corpuscular Hemoglobin 33.4 pg (25-34) Mean Corpuscular Hemoglobin Concent 36.9 g/dl (32-36) Platelet Count 99 K/uL (130-400) Mean Platelet Volume 9.3 fL (7.4-10.4) Neutrophils (%) (Auto) 86.5 % Lymphocytes (%) (Auto) 7.8 % Monocytes (%) (Auto) 4.9 % Eosinophils (%) (Auto) 0.0 % Basophils (%) (Auto) 0.4 % Neutrophils # (Auto) 4.57 K/uL (1.4-6.5) Lymphocytes # (Auto) 0.41 K/uL (1.2-3.4) Monocytes # (Auto) 0.26 K/uL (0.11-0.59) Eosinophils # (Auto) 0.00 K/uL (0-0.5) Basophils # (Auto) 0.02 K/uL (0-0.2) RDW Standard Deviation 41.3 fL (36.4-46.3) RDW Coefficient of Variation 12.5 % (11.5-14.5) Immature Granulocyte % (Auto) 0.4 % Immature Granulocyte # (Auto) 0.02 K/uL (0.00-0.02) Platelet Estimate DECREASED Red Blood Cell Morphology Unremarkable Anion Gap 7.0 mmol/L (3-11) Est Creatinine Clear Calc Drug Dose 77.6 ml/min Estimated GFR () 83.8 Estimated GFR (Non- 72.3 BUN/Creatinine Ratio 15.3 (10-20) Calcium Level 8.7 mg/dl (8.5-10.1) Total Bilirubin 0.8 mg/dl (0.2-1) Direct Bilirubin 0.2 mg/dl (0-0.2) Aspartate Amino Transf (AST/SGOT) 93 U/L (15-37) Alanine Aminotransferase (ALT/SGPT) 95 U/L (12-78) Alkaline Phosphatase 91 U/L (45-117) Total Protein 7.4 gm/dl (6.4-8.2) Albumin 3.2 gm/dl (3.4-5.0) Lipase 175 U/L (73-393) Urine Color YELLOW Urine Appearance CLEAR (CLEAR) Urine pH 5.5 (4.5-7.5) Urine Specific [place] 1.011 (1.000-1.030) Urine Protein NEG (NEG) Urine Glucose (UA) NEG (NEG) Urine Ketones NEG (NEG) Urine Occult Blood TRACE (NEG) Urine Nitrite NEG (NEG) Urine Bilirubin NEG (NEG) Urine Urobilinogen NEG (NEG) Urine Leukocyte Esterase NEG (NEG) Urine WBC (Auto) 0 /hpf (0-5) Urine RBC (Auto) 0-4 /hpf (0-4) Urine Hyaline Casts (Auto) 0 /lpf (0-5) Urine Epithelial Cells (Auto) 0-5 /lpf (0-5) Urine Bacteria (Auto) NEG (NEG) Labs reviewed by ED physician. Medications Administered Medications (Trade) Dose Ordered Sig/Bertha Route Start Time Stop Time Status Last Admin Dose Admin Sodium Chloride 1,000 ml @ 999 mls/hr Q1H1M STAT IV 10/21/17 19:20 10/21/17 20:20 DC 10/21/17 19:28 999 MLS/HR Acetaminophen 100 ml @ 400 mls/hr NOW STAT IV 10/21/17 19:20 10/21/17 19:34 DC 10/21/17 19:28 400 MLS/HR Prochlorperazine Edisylate (Compazine Inj) 10 mg NOW STAT IV 10/21/17 19:20 10/21/17 19:22 DC 10/21/17 19:28 10 MG Diphenhydramine HCl (Benadryl Inj) 50 mg NOW STAT IV 10/21/17 19:20 10/21/17 19:22 DC 10/21/17 19:27 50 MG Magnesium Sulfate (Magnesium Sulfate 1gm / D5W) 1 gm NOW STAT IV 10/21/17 19:20 10/21/17 19:22 DC 10/21/17 21:18 1 GM Sodium Chloride ([place] Nasal [place]) 2 sprays NOW STAT NA 10/21/17 19:26 10/21/17 19:28 DC 10/21/17 21:18 2 SPRAYS Amoxicillin/ Clavulanate Potassium (Augmentin Tab) 875 mg ONE ONCE PO 10/21/17 19:30 10/21/17 19:31 DC 10/21/17 21:18 875 MG Ketorolac Tromethamine (Toradol Inj) 30 mg NOW STAT IV 10/21/17 21:49 10/21/17 21:51 DC 10/21/17 22:09 30 MG Valproate Sodium 500 mg/Dextrose 55 ml @ 55 mls/hr NOW STAT IV 10/21/17 21:49 10/21/17 22:48 DC 10/21/17 22:09 55 MLS/HR Dexamethasone Sodium Phosphate (Dexamethasone Inj Pf) 10 mg STK-MED ONCE .ROUTE 10/21/17 22:00 10/21/17 22:01 DC 10/21/17 22:09 10 MG ED Course 1915: Past medical records reviewed. The patient was evaluated in room C1B. A complete history and physical examination was performed. 1919: ordered Magnesium Sulfate 1 gm IV, Benadryl Inj 50 mg IV, Compazine Inj 10 mg IV, Acetaminophen 100 ml @ 400 mls/hr Protocol IV, NSS 1000 ml @ 999 mls/ hr IV. 1925: Ordered Sodium Chloride 2 sprays NA. 1929: Ordered Augmentin Tab 875 mg PO. 1948: I reevaluated the patient and he still has a headache. 2148: Ordered Toradol Inj 30 mg IV, Dexamethasone Sodium Phosphate 10 mg/ Syringe 2.5 ml @ 1 mls/min IV. 2232: Upon reexamination, I recommended a lumbar puncture. The patient declined and states that he wants to go home and try the antibiotic. He will return if he develops severe neck pain and fevers. We had a lengthy talk about his sodium level as well. He will follow up with Dr. Greer's office ot have it rechecked. I discussed results and treatment plan with the patient. He verbalizes agreement and understanding. The patient is ready for discharge. Medical Decision Differential diagnosis: Etiologies such as migraine headache, meningitis, sinusitis, CO exposure, ICH, SAH, infection, tumor, headache, sinus thrombosis, arterial dissection, as well as others were entertained. This is a 67-year-old male who presents emergency department complaining of headache. The patient was seen here yesterday for same headache. I will note his sodium at the time was 132 and and is now 130. Using shared medical decision making with the patient I recommended migraine cocktail including normal saline bolus, Tylenol, Compazine, Benadryl. He was also given magnesium. The patient is refusing a lumbar puncture at this point. He does appear to have sinusitis on CAT scan performed yesterday so he was started on Augmentin. Based on the patient's complaint he was sent for an MRI today however I do not see any acute process. Prevent a headache from coming back he was then given Decadron as well as valproate. I do lengthy discussion with both the patient and his significant other over concerns about the patient's sodium dropping. I stressed the fact that he needs a repeat sodium level drawn as if this continues to fall he may need hospitalization. I contacted case management in an effort to get the patient in with Dr. Greer tomorrow to have a repeat sodium level drawn. Medication Reconcilliation Current Medication List: was personally reviewed by me Blood Pressure Screening Patient's blood pressure: Elevated blood pressure Blood pressure disposition: Elevated BP felt to be situational Impression Primary Impression: Headache Additional Impression: Hyponatremia Scribe Attestation The scribe's documentation has been prepared under my direction and personally reviewed by me in its entirety. I confirm that the note above accurately reflects all work, treatment, procedures, and medical decision making performed by me. Departure Information Dispostion Home / Self-Care Prescriptions Amoxicillin & Pot Clavulanate (Augmentin 875-125 mg) 1 Tab Tab 1 TAB PO BID for 10 Days, #20 TAB Prov: Pedro Lance MD 10/21/17 Referrals Jus Liu M.D. (PCP) Forms HOME CARE DOCUMENTATION FORM, IMPORTANT VISIT INFORMATION Patient Instructions My [facility] Additional Instructions Have repeat sodium level drawn within one week Return for severe headache, fevers, for LP Follow up with Dr Thompson's office You have been examined and treated today on an emergency basis only. This is not a substitute for, or an effort to provide, complete comprehensive medical care. It is impossible to recognize and treat all injuries or illnesses in a single emergency department visit. It is therefore important that you follow up closely with Dr Joaquina Bryant. Call as soon as possible for an appointment. Thank you for your time and consideration. I look forward to speaking with you again soon. Please don't hesitate to call us if you have any questions. Problem Qualifiers Primary Impression: Headache Headache type: unspecified Headache chronicity pattern: unspecified pattern Intractability: not intractable Qualified Codes: R51 - Headache
[2017-10-21 23:10] VITALS: BP 141/79; PULSE 60; O2SAT 95
== END 2017-10-21 23:26 | disposition home or self-care (01) ==
LOC: C.EDB 19:00 → C.EDC 23:26
DX: R51 Headache (principal); E87.1 Hypo-osmolality and hyponatremia; I10 Essential (primary) hypertension; Z86.73 Personal history of transient ischemic attack (TIA), and cerebral infarction without residual deficits; Z87.891 Personal history of nicotine dependence; Z82.3 Family history of stroke; Z91.030 Bee allergy status

== ENCOUNTER → 2017-12-29 | Outpatient (CLI) | payer OTHER ==
[~2017-12-29] MED LIST changes: -ONDA4TAB10 SL
[2017-12-29 15:02] LABS: BLOOD UREA NITROGEN 18 mg/dl (7-18); CALCIUM 8.5 mg/dl (8.5-10.1); CARBON DIOXIDE 24 mmol/L (21-32); CREATININE 1.18 mg/dl (0.60-1.40); GLUCOSE 117 mg/dl (70-99); POTASSIUM 4.4 mmol/L (3.5-5.1); SODIUM 135 mmol/L (136-145)
[2017-12-29 15:03] LABS: CHOLESTEROL 211 mg/dl (0-200); LDL CHOLESTEROL (DIRECT) 136 mg/dl
== END | disposition home or self-care (01) ==
LOC: C.LABSPEC 13:44
PROVIDERS: ATTEND Internal Medicine
DX: E78.5 Hyperlipidemia, unspecified (principal); I10 Essential (primary) hypertension

== ENCOUNTER 2023-12-23 07:22 | Observation (INO) ==
--- NOTE | 2023-11-24 13:43 | PAT Medication Instructions ---
Medication Instructions Date of Service November 24, 2023 Home Medications Medication Instructions Recorded atorvastatin 40 mg tablet 40 mg PO DAILY #30 tabs 03/23/23 folic acid 1 mg tablet 1,000 mcg PO DAILY #30 tabs 03/23/23 losartan 50 mg tablet 50 mg PO QAM #30 tabs 03/23/23 thiamine HCl (vitamin B1) 100 mg 100 mg PO DAILY #30 tabs 03/23/23 tablet hydrocortisone 1 % topical cream 1 applic topical BID PRN skin 10/27/23 (Cortisone (hydrocortisone)) irritation #28.35 grams escitalopram oxalate 20 mg tablet 20 mg PO QAM methylphenidate HCl 20 mg tablet 20 mg PO QAM atorvastatin 40 mg tablet 40 mg PO DAILY folic acid 1 mg tablet 1,000 mcg PO DAILY losartan 50 mg tablet 50 mg PO QAM thiamine HCl (vitamin B1) 100 mg tablet 100 mg PO DAILY hydrocortisone 1 % topical cream (Cortisone (hydrocortisone)) 1 applic topical BID PRN skin irritation aspirin 81 mg tablet,delayed release 81 mg PO QAM multivitamin 1 tab PO QAM ASK your prescriber and surgeon aspirin 81 mg tablet,delayed release 81 mg PO QAM STOP taking 24 hours before surgery hydrocortisone 1 % topical cream (Cortisone (hydrocortisone)) 1 applic topical BID PRN skin irritation DO NOT take the morning of surgery methylphenidate HCl 20 mg tablet 20 mg PO QAM folic acid 1 mg tablet 1,000 mcg PO DAILY losartan 50 mg tablet 50 mg PO QAM thiamine HCl (vitamin B1) 100 mg tablet 100 mg PO DAILY multivitamin 1 tab PO QAM Take morning of surgery With a small sip of water, OTHERWISE NOTHING TO EAT OR DRINK AFTER MIDNIGHT: escitalopram oxalate 20 mg tablet 20 mg PO QAM atorvastatin 40 mg tablet 40 mg PO DAILY Other Notes If you have any questions please call us at [phone] or [phone] or [phone] or [phone]
--- NOTE | 2023-11-29 12:10 | Anesthesiology Consultation ---
Date of Service November 29, 2023 Assessment & Plan (1) Encounter for pre-operative examination: Chart Review Chart Review: Acceptable Risk for Surgery (pending PCP clearance and response to optimization note regarding incidental tonsillar mass finding ) and Patient seen in Pre Admission Testing - Awaiting PCP clearance 12/03/23 (Dr. Gay) (Please send optimization note and 02/2023 neck CTA to PCP regarding tonsillar mass incidentally noted in Feb 2023) - Patient is NOT an ideal OPJ candidate (currently 23 hour obs) Per PAT appt on 11/29/23, no recent illness/disease exposures, illness related symptoms, or recent illness/disease positive tests. Will leave to surgeon's discretion if preop Covid testing needed Teaching & Discussion Pre-Anesthesia Teaching/Discussion Notes: Instructed NPO after midnight before surgery,except medications with 15 cc of water. Medication instructions provided according to the PAT guidelines. History Surgery Operation Date: 12/23/23 09:05 Proposed Procedures p Right Total Hip Arthroplasty - Jerzy Real MD Height/Weight Height: 5 ft 9 in Weight: 89.3 kg Allergies Allergy/AdvReac Type Severity Reaction Status Date / Time bee venom protein (honey bee) Allergy Unknown BEE STINGS Verified 11/19/23 12:22 , REMOTE HX 50 YR AGO - NO LONGER A PROBLEM No Known Drug Allergies Allergy 0 Verified 11/19/23 12:22 Medications Home Medications Medication Instructions Recorded Confirmed Last Taken escitalopram oxalate 20 mg tablet 20 mg PO QAM 03/22/23 11/19/23 Unknown methylphenidate HCl 20 mg tablet 20 mg PO QAM 03/22/23 11/19/23 Unknown atorvastatin 40 mg tablet 40 mg PO DAILY #30 tabs 03/23/23 11/19/23 Unknown folic acid 1 mg tablet 1,000 mcg PO DAILY #30 tabs 03/23/23 11/19/23 Unknown losartan 50 mg tablet 50 mg PO QAM #30 tabs 03/23/23 11/19/23 Unknown thiamine HCl (vitamin B1) 100 mg 100 mg PO DAILY #30 tabs 03/23/23 11/19/23 Unknown tablet hydrocortisone 1 % topical cream 1 applic topical BID PRN skin 10/27/23 11/19/23 Unknown (Cortisone (hydrocortisone)) irritation #28.35 grams aspirin 81 mg tablet,delayed 81 mg PO QAM 11/19/23 11/19/23 Unknown release multivitamin 1 tab PO QAM 11/19/23 11/19/23 Unknown Past Medical History Medical History Adult ADHD Depression History of stroke 2018 - mild - no residual effects HTN (hypertension) controlled at present per pt, not taking med at this time Hx of Lyme disease 2019 - treated per patient - possible chronic fatigue from Lymes Hx-TIA (transient ischemic attack) no residual problems, > 03/22/23 Sleep apnea cpap Exercise / Class Metabolic Activity II 4-5 Yardwork/Stairs/Walk up hill (one flight of stairs - no chest pain or SOB ) Past Surgical History Surgical History History of colonoscopy S/P cataract extraction bilat Past Anesthesia History No Hx of Anesthesia Complications and No Family Hx of Anesthesia Complications History of PONV No Hx of PONV and No Hx of Motion Sickness Social History Smoking Status: Never smoker Do You Dip or Chew Tobacco: No Hx Alcohol Use: Yes Alcohol type: beer alcohol intake frequency: 0-2 drinks per day (1-2 beers/day ) Hx Substance Use: No substance use type: does not use Review of Systems Patient denies chest pain, shortness of breath, dyspnea on exertion, reflux, cough, wheezing, palpitations. No hx of seizures, AR. No hx of blood clots or blood transfusions Physical Exam Vital Signs VITALS BP 162/76 (manually) P 54 TEMP 98.0 SP02 95% RESP 16 Constitutional no acute distress ENMT Mouth: + small oral opening; no TMJ clicking Thyromental Distance: > or= 3.5 Finger Breadths (3.5) Mallampati Class: IV Missing molars and side teeth Caps and crowns to side teeth and molars Neck + limited neck extension Respiratory normal respiratory effort; no respiratory distress Auscultation: lungs clear to auscultation bilaterally; no wheezes Cardiovascular Rate/Rhythm: regular rate and regular rhythm Heart Sounds: no murmur Vessels: no carotid bruit Musculoskeletal Spine: no pain with cervical ROM Extremities: extremities normal to inspection Psychiatric Orientation: alert Lab Results Anesthesia Preop Results Results Anesthesia Widget: WBC 7.47 K/ul (4.8-10.8) 11/29/23 Hgb 16.9 g/dl (14.0-18.0) 11/29/23 Hct 48.4 % (42.0-52.0) 11/29/23 Plt 250 K/uL (130-400) 11/29/23 Na 138 mmol/L (136-145) 11/29/23 K 4.5 mmol/L (3.5-5.1) 11/29/23 Cl 105 mmol/L (98-107) 11/29/23 CO2 29 mmol/L (21-32) 11/29/23 BUN 18 mg/dl (6-23) 11/29/23 Creat 0.78 mg/dl (0.6-1.4) 11/29/23 Glucose Level 87 mg/dl (70-99(Fasting)) 11/29/23 PT 10.8 Seconds (9.0-12.0) 11/29/23 PTT 26 Seconds (21-31) 11/29/23 INR 1.0 (0.9-1.1) 11/29/23 Urine Color Yellow 11/29/23 Urine Appearance Slightly Cloudy (Clear) 11/29/23 Urine pH 5.0 (4.5-7.5) 11/29/23 Urine Specific [place] 1.025 (1.000-1.030) 11/29/23 Urine Protein Negative (Negative) 11/29/23 Urine Glucose (UA) Negative (Negative) 11/29/23 Urine Ketones Negative (Negative) 11/29/23 Urine Blood Negative (Negative) 11/29/23 Urine Nitrite Negative (Negative) 11/29/23 Urine Bilirubin Negative (Negative) 11/29/23 Urine Urobilinogen Negative (Negative) 11/29/23 Urine Leukocyte Esterase Negative (Negative) 11/29/23 Blood Type O Positive 11/29/23 Antibody Screen NEGATIVE 11/29/23 Testing Electrocardiogram Date: 03/22/23 SR with 1st degree AVB at 73bpm RBBB Inferior infarct (cited on or before September 16, 2017) When compared to EKG from October 20, 2017- NH interval has increased, RBBB is now present per cardio Chest X-Ray Date: 03/22/23 Findings: + NAD and + cardiomegaly FINDINGS: Lung volumes are normal. There is no pneumothorax or pleural effusion. There is moderate cardiomegaly. Linear densities representing atelectasis or scarring. There is no evidence for pulmonary edema. There is no consolidation to suggest pneumonia. IMPRESSION: No acute cardiopulmonary findings. Stable cardiomegaly. Echocardiogram Date: 03/23/23 EF: 65-70% LV Function: normal RWMA: + none Other Findings: + LVH (severe/concentric) and + diastolic dysfunction (Type I ) Valvular Disease: + no significant valvular disease Mild left atrial dilation Normal estimated RVSP No visualized right to left interatrial shunt noted following agitated saline administration. (Discussed with Dr. Hill- no murmur noted on exam at PAT 11/29/23- patient can proceed as scheduled) Other Testing Brain MRI 03/23/23= Mildly motion degraded exam. There is a subcentimeter ill- defined focus of slightly increased diffusion-weighted signal within the left parietal lobe which may be artifactual or represent a subacute lacunar infarct. No acute or subacute territorial infarct identified. Involutional changes with chronic microvascular ischemic disease. Neck CTA 03/22/23= No dissection, pseudoaneurysm, or hemodynamically significant stenosis of the carotid or vertebral arteries. Asymmetric enhancement of the left palatine tonsil which appears masslike measuring approximately 1.6 x 0.9 x 1.3 cm. Malignancy is not excluded. Recommend direct visualization. (Patient denies dysphagia- discussed with Dr. Hill- will send note to PCP to address at upcoming clearance appt to ensure no further follow up needed on tonsillar mass) Head CTA 03/22/23= No large vessel occlusion. Head CT 03/22/23= No intracranial hemorrhage. Global parenchymal volume loss with severe white matter disease likely representing sequela of chronic microvascular ischemic disease as well as bilateral thalamic and basal nuclei lacunar infarctions. This degrades evaluation for acute infarction. Consider evaluation with MRI.
[~2023-12-23 07:22] MED LIST changes: -ASPI-320 PO; -ATEN25TA PO; +BUPIVACAINE 0.5 % 5 MG/1 ML PF 10ML VIAL ONE
[2023-12-23] MEDS ORDERED: MIDAZOLAM HCL 1 MG/ML 2ML VIAL ONE ×2 (07:25)
[2023-12-23] MEDS ORDERED: LIDOCAINE 2% 2 ML VIAL/AMP(20MG/ML) INFIL ONE (07:25)
[2023-12-23] MEDS ORDERED: PROPOFOL IV EMULSION 10 MG/ML 20 ML VIAL IV ONE (07:25)
[2023-12-23] MEDS ORDERED: ONDANSETRON INJ 2 MG/ML 2 ML VIAL ONE (07:25)
[2023-12-23] MEDS: ACETAMINOPHEN 500 MG TAB PO SCH ×2 (07:46→13:19)
[2023-12-23] MEDS: dexAMETHasone**PF** 10 MG/ML VIAL IV SCH (07:46)
[2023-12-23] MEDS: traMADol HCL 50 MG TABLET PO SCH (07:47)
[2023-12-23] MEDS: FAMOTIDINE 20 MG TAB PO SCH (07:47)
[2023-12-23] MEDS: LR 60ML/HR IV SCH (07:47)
[2023-12-23] MEDS: CeleBREX 200 MG CAP PO SCH (07:47)
[2023-12-23] MEDS: Scopolamine 1 MG TDSY TD SCH (07:47)
[2023-12-23] MEDS: LR 500ML BOLUS, THEN 15ML/HR IV SCH (08:02)
--- NOTE | 2023-12-23 08:24 | History & Physical Bridge Note ---
Date of Service December 23, 2023 History & Physical Bridge Note I have examined the patient, reviewed the History & Physical and in the interval since the performance of the History & Physical I have noted the following changes of clinical significance: no changes noted
[2023-12-23] MEDS ORDERED: ONDANSETRON INJ 2 MG/ML 2 ML VIAL IV PRN ×2 (08:32→12:54)
[2023-12-23] MEDS ORDERED: PROMETHAZINE HCL 6.25 MG in SODIUM CHLORIDE 0.9% 50 ML IV PRN (08:32)
[2023-12-23] MEDS ORDERED: ATROPINE SULFATE 0.1 MG/ML 10ML SYR IV PRN (08:32)
[2023-12-23] MEDS ORDERED: ePHEDrine sulfate 50 MG/ML AMP IV PRN (08:32)
[2023-12-23] MEDS ORDERED: fentaNYL citrate PF 100 MCG/2 ML VIAL IV PRN (08:32)
[2023-12-23] MEDS: TRANEXAMIC ACID 1,000 MG **IV Pre-op IV SCH (08:54)
[2023-12-23] MEDS: ceFAZolin 2000MG 2,000 MG/15 ML SYR IV SCH ×2 (09:14→17:12)
[2023-12-23] MEDS ORDERED: ceFAZolin 330 MG/ML 1 GM VIAL ONE (09:30)
[2023-12-23] MEDS: ORTHO JOINT ANESTHETIC ONE (10:04)
[2023-12-23] MEDS: ROPIV 0.5% 246mg, Ketorolac 30mg, EPINEPHrine 0.5mg in NSS INFIL SCH (10:04)
[2023-12-23] MEDS: TRANEXAMIC ACID 1,000 MG **IV Intra-op IV SCH (10:22)
--- NOTE | 2023-12-23 10:45 | Operative Report ---
Post Operative Report Pre & Post Diagnosis Operation Date: 12/23/23 08:50 Pre-Op Diagnosis: Right Hip Osteoarthritis Post-Op Diagnosis: Right Hip Osteoarthritis, multiple loose bodies I identified the patient and participated in the time-out.: Yes Procedure Operation Date: 12/23/23 08:50 Actual Procedures p Right Total Hip Arthroplasty, loose body removal - Jerzy Real MD Surgeon Jerzy Real MD [employer] Mj Smart MD and Hoda Alonzo PA-C. Estimated Blood Loss 100 Findings Consistent with Post-Op Diagnosis Fluids 1200 cc crystalloid Specimens #1 right femoral head #2 Three loose bodies removed from the joint. Anesthesia Type Spinal MAC Complications none Disposition Disposition: Recovery Room Indications 73-year-old male, with right hip arthritis refractory to conservative management. X-rays demonstrate [id number] disease. I had a long discussion with him about the risks and benefits of surgery, alternatives to surgery, and expected outcomes. After reviewing all these he elected to proceed with surgery. All questions were answered. Informed consent was signed. Description of Procedure Patient was identified in the preoperative holding area where the surgical site, right hip, was marked. A spinal anesthetic was placed, then the patient was brought back to the main operating room, placed in the operating table and moved into the lateral decubitus position. Axillary roll was placed. All bony prominences were padded. Perioperative antibiotics and tranexamic acid 1 gram I V were administered. The operative extremity was prepped and draped in the normal sterile fashion. Prior to incision a multidisciplinary timeout was called. All in the room were in agreement. We began by making an incision for a posterior approach to the hip. We dissected down through subcutaneous tissues to the level of the fascia. The fascia was incised in line with the incision. Charnley bow was placed. Fatty tissue was reflected posteriorly off the back of the greater trochanter to expose the piriformis and short external rotators of the hip. Quadratus femoris was taken off the femur subperiosteally. The piriformis and short external rotators were dissected off the posterior aspect of the hip. A box cut was made in the capsule. Inferior hip capsule was released off the femur. The femoral head was dislocated. The femoral neck cut was made at our preoperative template. The acetabulum was then exposed. Inspection of the acetabulum at this point revealed multiple loose bodies of various shapes and sizes. 3 of the largest loose bodies were removed and sent to pathology. At least 4 or 5 other smaller loose bodies were subsequently removed as the case proceeded. The labrum was sharply excised. Contents of the cotyloid fossa were removed with electrocautery. We then began reaming at a size 8 mm less than our preoperative template. We reamed up by [address] way up to a size 58 mm cup. This gave us good bleeding cancellus bone circumferentially. The acetabulum was then irrigated out and dried. The real [place] Gription cup was then impacted down into position with 45 degrees of lateral opening and 25 degrees of anteversion. A single cancellous bone screw was placed up into the ilium. Excellent fixation was obtained. A trial liner for a 36 mm femoral head was then placed. Next we turned our attention to the femur. The lateral neck was removed with a box osteotome. Intramedullary guide was used to establish the intramedullary canal. We then broached all the way up to a size 5. We began trialing with a high offset neck and a +5 head. Hip was reduced. Leg lengths were symmetric. The hip was stable in extension and external rotation, and stable in the sleeper position. At 90 degrees of hip flexion the hip could be internally rotated 55 degrees before levering out of the cup. I was very happy with the stability e xam. Therefore the hip was dislocated and the femoral trial was removed. The acetabulum was re-exposed, and the trial liner was removed. Ava hole eliminator screw was placed. An Altrx polyethylene liner for a 36 mm femoral head was then impacted into the shell. The locking mechanism was checked to ensure that it had engaged which it had. The femur was re-exposed. The femoral canal was irrigated and dried. The real Actis femoral stem was opened up. This was impacted down into position. The femoral head was opened up and gently impacted down onto the trunnion. The hip was atraumatically reduced. Another 1 gram of IV tranexamic acid was started prior to closure. The wound was irrigated out with sterile Betadine solution. The periarticular injection cocktail was then placed. The short external rotators, piriformis, and posterior capsule were repaired through drill holes in the greater trochanter using #2 Vicryl. The fascia was run with a looped #1 PDS. The subcutaneous layer was closed with #1 PDS. The dermal layer was closed with 2-0 Vicryl. Zip line was used for the skin followed by a Silverlon dressing. A compressive dressing was then placed. The patient was then rolled supine. Leg lengths were rechecked and were symmetric. An abduction pillow was placed. Sedation was lifted and the patient was transferred to the recovery room in stable condition. Summary of implants: Depuy [place] Gription Acetabular Shell Sector Cup, 58 mm outer diameter [place] Cancellous bone screw, 6.5 x 40 mm Ava hole eliminator [place] Altrx Polyethylene Acetabular Liner, Neutral, with a 36 mm inner diameter DePuy Actis collared cementless Femoral stem, 12/14 taper, size 5 high offset 36 mm ceramic femoral head with +5 offset Postoperative course: Patient will be admitted overnight from the recovery room. Patient will be weightbearing as tolerated with posterior hip precautions. Aspirin for DVT prophylaxis I attest to the content of the Intraoperative Record and any orders documented therein. Any exceptions are noted below.
--- NOTE | 2023-12-23 11:03 | Operative Report ---
Post Operative Report Pre & Post Diagnosis Operation Date: 12/23/23 08:50 Pre-Op Diagnosis: Right Hip Osteoarthritis Post-Op Diagnosis: Right Hip Osteoarthritis I identified the patient and participated in the time-out.: Yes Procedure Operation Date: 12/23/23 08:50 Actual Procedures p Right Total Hip Arthroplasty - Jerzy Real MD Surgeon Jerzy Real M.D. Story Writer Mj Smart MD and Hoda Alonzo PA-C. Estimated Blood Loss 100 Findings Consistent with Post-Op Diagnosis Specimens bone and soft tissue Anesthesia Type Spinal MAC Description of Procedure Patient was taken to the operating room, placed under spinal anesthesia with sedation. Time out performed, prepped and draped in routine sterile fashion. He was given 2gm IV Ancef for surgical prophylaxis and 1 gm IV TXA preoperatively for bleeding prophylaxis. I was present during the entire case, please see Dr. Real's operative report for further detail. I assisted with positioning, exposure, tissue retraction, hemostasis, trialing of implants, implantation of hardware, closure and dressings. Patient was awakened and taken to the recovery room in stable condition. I attest to the content of the Intraoperative Record and any orders documented therein. Any exceptions are noted below.
--- NOTE | 2023-12-23 11:06 | Operative Report ---
Post Operative Report Pre & Post Diagnosis Operation Date: 12/23/23 08:50 Pre-Op Diagnosis: Right Hip Osteoarthritis Post-Op Diagnosis: Right Hip Osteoarthritis I identified the patient and participated in the time-out.: Yes Procedure Operation Date: 12/23/23 08:50 Actual Procedures p Right Total Hip Arthroplasty - Jerzy Real MD Surgeon Jerzy Real MD [employer] Mj Smart MD and Hoda Alonzo PA-C. Estimated Blood Loss 100 Findings Consistent with Post-Op Diagnosis Same as postoperative diagnosis. Specimens The resected head and portions of the neck of the right femur. Description of Procedure Please see detailed operative note. I attest to the content of the Intraoperative Record and any orders documented therein. Any exceptions are noted below.
--- NOTE | 2023-12-23 12:49 | XRay Report ---
XR hip 1V RT w pelvis CLINICAL HISTORY: IN PACU - Post Surgical TECHNIQUE: 1 view of the right hip and single frontal view of the pelvis were obtained. Comparison: Comparison is made to hip radiographs 03/31/2024 FINDINGS: Patient is status post total hip arthroplasty with expected postsurgical changes including soft tissu e swelling and subcutaneous emphysema. IMPRESSION: Expected postoperative appearance status post placement of total hip arthroplasty. ACT 112: Negative or not required by law. Electronically signed by: Silvano Robertson M.D. 12/23/2023 12:48 PM
[2023-12-23] MEDS ORDERED: NALOXONE HCL 0.4 MG/1 ML VIAL/CARP IV PRN (12:54)
[2023-12-23] MEDS ORDERED: TAMSULOSIN HCL 0.4 MG CAP PO PRN (12:54)
[2023-12-23] MEDS ORDERED: HYDROmorphone INJ 0.5 MG/0.5 ML SYR IV PRN (12:54)
[2023-12-23] MEDS ORDERED: bisacodyL 10 MG SUPP PR PRN (12:54)
[2023-12-23] MEDS ORDERED: HYDROmorphone INJ 1 MG/ML SYRINGE IV PRN (12:54)
[2023-12-23] MEDS ORDERED: diphenhydrAMINE 50 MG/ML VIAL IV PRN (12:54)
[2023-12-23] MEDS ORDERED: MAGNESIUM HYDROXIDE SUSP 30 ML UDC PO PRN (12:54)
--- NOTE | 2023-12-23 12:57 | Anesthesiology Progress Note ---
Date of Service December 23, 2023 Anesthesia Post Procedure Vital Signs Vital Signs: Temp Pulse Pulse Resp BP Pulse Ox O2 Del Method 12/23/23 12:40 55 L 20 138/81 94 Room Air 12/23/23 12:30 51 L 18 156/81 H 94 Room Air 12/23/23 12:20 54 L 18 150/85 H 95 Room Air 12/23/23 12:10 36.5 C 53 L 20 141/80 H 94 Room Air 12/23/23 12:00 54 L 12 146/78 H 93 Room Air 12/23/23 11:50 51 L 17 132/77 95 Room Air 12/23/23 11:40 51 L 18 146/79 H 94 Room Air 12/23/23 11:30 51 L 12 148/69 H 95 Room Air 12/23/23 11:20 49 L 16 158/69 H 97 Oxymask 12/23/23 11:10 50 L 14 147/77 H 97 Oxymask 12/23/23 11:00 36.2 C L 54 L 12 133/89 98 Oxymask 12/23/23 07:42 36.6 C 56 L 20 189/94 H 97 Room Air O2 Flow Rate 12/23/23 12:40 12/23/23 12:30 12/23/23 12:20 12/23/23 12:10 12/23/23 12:00 12/23/23 11:50 12/23/23 11:40 12/23/23 11:30 12/23/23 11:20 4 12/23/23 11:10 4 12/23/23 11:00 6 12/23/23 07:42 Pain Intensity Right Hip: Pain Intensity: 3 Transfer of Care Handoff Completed per policy Notes Mental Status: alert / awake / arousable and participated in evaluation Patient Amnestic to Procedure: Yes Nausea / Vomiting: adequately controlled Pain: adequately controlled Airway Patency, RR, SpO2: stable & adequate BP & HR: stable & adequate Hydration State: stable & adequate Neuraxial Anesthesia: was administered and sensory block is resolving Anesthetic Complications: no major complications apparent and Pt Satisfied with anesthetic care
[2023-12-23] MEDS: SODIUM CHLORIDE 0.9% 1,000 ML IV SCH (13:12)
[2023-12-23] MEDS: KETOROLAC TROMETHAMINE 15 MG/ML VIAL IV SCH (13:19)
[2023-12-23] MEDS: Scopolamine CHECK PATCH PLACEMENT SCH (17:12)
[2023-12-23] MEDS: oxyCODONE HCL IR 5 MG TAB (IMMEDIATE RELEASE) PO PRN (20:01)
[2023-12-23] MEDS: SENNA 8.6 MG TAB PO SCH (20:02)
[2023-12-23] MEDS: DOCUSATE SODIUM 100 MG CAP PO SCH (20:02)
[2023-12-23] MEDS: ASPIRIN 81 MG ECTAB PO SCH (20:02)
[2023-12-24 06:16] LABS: Basophils # (auto) 0.02 K/uL (0.00-0.20); Basophils % (auto) 0.1 %; Eosinophils # (auto) 0.02 K/uL (0.00-0.50); Eosinophils % (auto) 0.1 %; Hematocrit (blood only) 39.1 % (42.0-52.0); Hemoglobin 13.4 g/dl (14.0-18.0); Immature Granulocytes # (auto) 0.08 K/uL (0.01-0.20); Immature Granulocytes % (auto) 0.5 %; Lymphocytes # (auto) 1.81 K/uL (1.20-3.40); Lymphocytes % (auto) 11.4 %; Mean Corpuscular Hemoglobin 32.5 pg (25.0-34.0); Mean Corpuscular Hgb Conc 34.3 g/dL (32.0-36.0); Mean Corpuscular Volume 94.9 fL (80.0-100.0); Monocytes # (auto) 1.42 K/uL (0.11-0.59); Monocytes % (auto) 8.9 %; Neutrophils # (auto) 12.52 K/uL (1.40-6.50); Platelet Count 238 K/uL (130-400); RDW Coefficient of Variation 13.3 % (11.5-14.5); RDW Standard Deviation 47.1 fL (36.4-46.3); Red Blood Count 4.12 M/uL (4.70-6.10); White Blood Count 15.87 K/ul (4.8-10.8)
[2023-12-24 06:34] LABS: Calcium 8.4 mg/dl (8.6-10.3); Creatinine Clr Calc Pharmacy 64.9 ml/min; Est GFR (African American) 75.1 ml/min; Est GFR (Non-African American) 64.8 ml/min; Potassium 4.4 mmol/L (3.5-5.1)
[2023-12-24] MEDS: MULTIVITAMIN TAB PO SCH (08:39)
[2023-12-24] MEDS: FOLIC ACID 1 MG TAB PO SCH (08:39)
[2023-12-24] MEDS: ESCITALOPRAM OXALATE 20 MG TAB PO SCH (08:39)
[2023-12-24] MEDS: ATORVASTATIN 40 MG TAB PO SCH (08:39)
[2023-12-24] MEDS: THIAMINE HCL 100 MG TAB PO SCH (08:39)
[2023-12-24] MEDS: dexAMETHasone 4 MG TAB PO SCH (08:39)
[2023-12-24] MEDS: METHYLPHENIDATE HCL 10 MG TABLET PO SCH (08:40)
[2023-12-24] MEDS: LOSARTAN POTASSIUM 50 MG TAB PO SCH (08:40)
[2023-12-24] MEDS ORDERED: NON-FORMULARY MEDICATION (Multivitamin Tablet) PO SCH (09:00)
--- NOTE | 2023-12-24 09:12 | Orthopedic Progress Note ---
Date of Service December 24, 2023 Assessment & Plan (1) Status post total hip replacement, right: Plan: The patient was educated regarding today's findings. Conservative care measures were discussed. His outer dressings were removed. Inner Silverlon was left in place. He may get this wet in the shower. Avoid scrubbing. Avoid soaking. Follow-up in the office in 2 weeks as scheduled for Zipline removal. Weight- bear as tolerated using his walker. Ice and elevate the hip frequently to reduce pain and swelling. He will use aspirin 325 mg twice daily. Written discharge instructions were provided. Prescription for oxycodone was sent to his pharmacy. Weight-bear as tolerated using his walker. Admission and Anticipated Discharge Date Admission Date: December 23, 2023 Subjective This 73-year-old male seen today in his room. He is 1 day status post right total hip arthroplasty. He currently has no complaints. Denies any chest pain, shortness of breath, nausea, vomiting, or abdominal pain. He states his hip hurts but it is tolerable. He is looking forward to going home today. He has been out of bed. He has already finished his breakfast. No other complaints. Physical Exam Physical Exam: General: Well-developed, well-nourished, elderly male, in no acute distress. Laying in bed. Alert and oriented. Skin: Warm and dry with good turgor. Expected postoperative ecchymosis around his right hip. Postsurgical dressings are in place. Upon removal, his inner Silverlon is dry. There is no bleeding on the external dressings. There is minimal edema around the right hip. Musculoskeletal: Right hip evaluation reveals supple passive motion with discomfort with flexion as well as rotation. He has intact active knee flexion and extension as well as ankle dorsiflexion and plantarflexion. Neurologic: Gross sensation is intact across the right leg by soft touch. Peripheral pulses are 2+. Results & Data Vital Signs (Past 12 Hours) Vital Signs Temp Pulse Pulse Resp BP Pulse Ox O2 Del Method 12/24/23 07:34 36.6 C 54 L 18 154/74 H 97 Room Air 12/24/23 02:04 36.4 C L 53 L 18 160/83 H 96 Room Air 12/23/23 22:46 36.4 C L 61 18 135/68 94 Room Air 12/23/23 21:51 Room Air Laboratory Results CBC obtained this morning shows white count of 15.7. H&H of 13.4 and 39.1. Platelets 238,000. BMP this morning shows sodium 138, potassium 4.4, chloride 107. BUN of 28 with creatinine 1.12. Glucose this morning is 134.
--- NOTE | 2023-12-24 16:02 | Discharge Summary ---
Date of Service December 24, 2023 Discharge Data Procedures Performed Operation Date: 12/23/23 08:50 Actual Procedures p Right Total Hip Arthroplasty - Jerzy Real MD Hospital Course (1) Status post total hip replacement, right: Patient was kept in observation at [facility] after undergoing an elective right total hip arthroplasty with Dr. Real on December 23, 2023. His surgery was performed with spinal anesthesia and IV sedation. He tolerated the procedure well without any intraoperative complications. Preoperatively he was given 2 g of IV Ancef which was continued for 24 hours after surgery for antibiotic prophylaxis. He was also given 1 g of IV TXA preoperatively which was repeated postoperatively x 1 dose. In the recovery room he had x-rays of his right hip which showed a stable right hip arthroplasty with no evidence of fracture or hardware abnormality. Postoperatively, he was allowed out of bed, weight-bear as tolerated with the assistance of a walker. He was given an abduction pillow and was advised to keep this between his knees when in bed. He was started on aspirin 81 mg twice daily for DVT prophylaxis. He also had KRISHNA stockings and knee-high SCDs during his inpatient stay. His home medications were continued. Physical therapy and Occupational Therapy consult was placed. Posterior hip precautions were taught and reviewed by the therapist. Ice and elevation were recommended for swelling prevention and pain control. His vital signs remained stable. His CBC and BMP were within normal limits on postoperative day 1. On postoperative day 1 his outer pressure dressing was removed and the Silverlon was left in place and will remain in place until his first postoperative appointment as an outpatient. He was given a regular diet. He was given oxycodone, Tylenol and IV Dilaudid for use after surgery as needed for pain. He was also given Celebrex, IV Toradol and dexamethasone. He did well postoperatively. He did well out of bed with the assistance of nursing as well as physical therapy. He was deemed safe for discharge to his home. He was seen by the case management and home health arrangements made been made. He was discharged to his home in stable condition on December 24, 2023. Discharge instructions were reviewed and provided.
== END 2023-12-24 11:37 | disposition home health service (06) ==
LOC: ASU 07:22 → 3E 07:22